=== PATIENT | male | born 1950 | race Caucasian/White ===

== ENCOUNTER 2017-06-26 16:11 | Emergency (ER) | payer MEDICARE, OTHER ==
--- NOTE | 2017-06-26 17:42 | RADIOLOGY REPORT (SQ) ---
EXAM DESCRIPTION: CT HEAD WITHOUT COMPLETED DATE/TIME: 06/26/2017 5:30 pm REASON FOR STUDY: right hand weak COMPARISON: 05/22/2017. TECHNIQUE: Axial images acquired through the brain without intravenous contrast. Images reviewed wi th bone, brain and subdural windows. Images stored on PACS. All CT scanners at this facility use dose modulation, iterative reconstruction, and/or weight based d osing when appropriate to reduce radiation dose to as low as reasonably achievable (ALARA). [facility]: Dose Right [facility]: CareDose [facility]: Dose Right [facility]: Teradose 4D [facility]: [employer] RADIATION DOSE: mGy. LIMITATIONS: None. FINDINGS: VENTRICLES: Stable mild ventriculomegaly. Bilateral ventricular shunt tubes. Stable 2.3 cm mass in the midline, possibly the 3rd ventricle. CEREBRUM: No masses. No hemorrhage. No midline shift. Areas of low density in the white matter mos t likely due to chronic micro-vascular ischemic change. No evidence for acute infarction. CEREBELLUM: No masses. No hemorrhage. No alteration of density. No evidence for acute infarction. EXTRAAXIAL SPACES: Mild age-related involutional change. No fluid collections. No masses. ORBITS AND GLOBE: No intra- or extraconal masses. Normal contour of globe without masses. CALVARIUM: No fracture. PARANASAL SINUSES: No fluid or mucosal thickening. SOFT TISSUES: No mass or hematoma. OTHER: No other significant finding. IMPRESSION: 1. 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 2. STABLE MILD VENTRICULOMEGALY WITH BILATERAL VENTRICULAR SHUNT TUBES. 3. MILD CHRONIC CHANGES OF ATROPHY AND MICROVASCULAR ISCHEMIA. NO ACUTE PROCESS. EVIDENCE OF ACUTE STROKE: NO. TECHNICAL DOCUMENTATION: JOB ID: [id number] Quality ID # [id number]: Final reports with documentation of one or more dose reduction techniques (e.g., Au tomated exposure control, adjustment of the mA and/or kV according to patient size, use of iterative reconstruction technique) 2010 [employer]- All Rights Reserved
[2017-06-26 18:06] LABS: ABSOLUTE BASOPHILS # (AUTO) 0.1 10^3/uL (0.0-0.2); ABSOLUTE EOSINOPHILS # (AUTO) 0.2 10^3/uL (0.0-0.6); ABSOLUTE LYMPHOCYTES (AUTO) 1.3 10^3/uL (0.5-4.7); ABSOLUTE MONOCYTES (AUTO) 0.8 10^3/uL (0.1-1.4); ABSOLUTE NEUT (AUTO) 5.9 10^3/uL (1.7-8.2); BASOPHILS % (AUTO) 0.9 % (0-2); EOSINOPHILS % (AUTO) 2.4 % (0-6); HEMATOCRIT 52.8 % (37.9-51.0); HEMOGLOBIN 18.1 g/dL (13.5-17.0); HGB HCT DIFFERENCE 1.5; LYMPHOCYTES % (AUTO) 15.9 % (13-45); MEAN CORPUSCULAR HEMOGLOBIN 30.9 pg (27.0-33.4); MEAN CORPUSCULAR HGB CONC 34.4 g/dL (32.0-36.0); MEAN CORPUSCULAR VOLUME 90 fl (80-97); MONOCYTES % (AUTO) 9.5 % (3-13); RED BLOOD COUNT 5.87 10^6/uL (4.35-5.55); RED CELL DISTRIBUTION WIDTH 13.3 % (11.5-14.0); SEGMENTED NEUTROPHILS % (AUTO) 71.3 % (42-78); WHITE BLOOD COUNT 8.3 10^3/uL (4.0-10.5)
[2017-06-26 18:23] LABS: ALANINE AMINOTRANSFERASE 50 U/L (21-72); ALBUMIN 4.2 g/dL (3.5-5.0); ALKALINE PHOSPHATASE 85 U/L (38-126); ANION GAP 16 (5-19); ASPARTATE AMINO TRANSFERASE 33 U/L (17-59); BILIRUBIN,DIRECT 0.3 mg/dL (0.0-0.4); BILIRUBIN,TOTAL 0.6 mg/dL (0.2-1.3); BLOOD UREA NITROGEN 16 mg/dL (7-20); CALCIUM 9.8 mg/dL (8.4-10.2); CARBON DIOXIDE 22 mmol/L (22-30); CHLORIDE 99 mmol/L (98-107); CREATININE RESULT 1.02 mg/dL (0.52-1.25); GLUCOSE 138 mg/dL (75-110); POTASSIUM 4.7 mmol/L (3.6-5.0); SODIUM 136.8 mmol/L (137-145); TOTAL PROTEIN 7.2 g/dL (6.3-8.2)
[2017-06-26 19:07] LABS: APPEARANCE,URINE CLEAR; BILIRUBIN,URINE NEGATIVE (NEGATIVE); GLUCOSE, URINE >=500 mg/dL (NEGATIVE); KETONES,URINE TRACE mg/dL (NEGATIVE); LEUKOCYTE ESTERASE,URINE NEGATIVE (NEGATIVE); NITRITE,URINE NEGATIVE (NEGATIVE); PROTEIN,URINE 100 mg/dL (NEGATIVE); URINE SPECIFIC GRAVITY 1.026; UROBILINOGEN,URINE NEGATIVE mg/dL (<2.0)
--- NOTE | 2017-06-26 19:09 | ER Document Report ---
ED Neuro Symptoms/Deficit - General Chief Complaint: General Weakness Stated Complaint: WEAKNESS IN RIGHT HAND Time Seen by Provider: 06/26/17 17:29 Notes: Patient had use of his right hand, according to his . He had an episode a month or so ago, around early or mid April, with both his right hand and leg being difficult to control. He was seen here and had a complete workup including CT scan of the brain and was felt to be improving and discharged home. Patient right hand recovered completely as did his right leg. Then, yesterday, the weakness of the right hand returned. Patient was also feeling lightheaded and dizzy. He did not lose his balance or fall, however. He does not have involvement of his leg at this time. says that he seems to be improving somewhat today. Patient has a history of hydrocephalus for which he had shunt placed in his brain in 1978. PMH: Coronary stent, hypertension, NIDDM. Patient's primary care provider is Dr. Rodríguez. TRAVEL OUTSIDE OF THE [place] IN LAST 30 DAYS: No - Related Data Allergies/Adverse Reactions: No Known Allergies Allergy (Verified 06/26/17 16:21) Past Medical History - Social History Smoking Status: Never Smoker Chew tobacco use (# tins/day): No Frequency of alcohol use: None Drug Abuse: None Family History: Reviewed & Not Pertinent Patient has suicidal ideation: No Patient has homicidal ideation: No - Past Medical History Cardiac Medical History: Reports: Hx Coronary Artery Disease, Hx Hypertension Endocrine Medical History: Reports: Hx Diabetes Mellitus Type 1, Hx Diabetes Mellitus Type 2 Past Surgical History: Reports: Hx Cardiac Catheterization, Hx Neurologic Surgery - brain for hydrocephalus. Review of Systems - Review of Systems Notes: REVIEW OF SYSTEMS: CONSTITUTIONAL : Denies fever. EENT: Denies eye, ear, nose or mouth or throat pain or other symptoms. CARDIOVASCULAR: Denies chest pain. RESPIRATORY: Denies cough, chest congestion, or shortness of breath. GASTROINTESTINAL: Denies abdominal pain or nausea, vomiting, or diarrhea. GENITOURINARY: Denies difficulty or painful urinating, urinary frequency, blood in urine. MUSCULOSKELETAL: Denies back or neck pain. Denies joint pain or swelling. SKIN: Denies rash or skin lesions. NEUROLOGICAL: Denies LOC or altered mental status. Denies headache. See HPI. ALL OTHER SYSTEMS REVIEWED AND NEGATIVE. Physical Exam - Vital signs Vitals: Temp Pulse Resp BP Pulse Ox 98.3 F 126 H 18 139/88 H 95 06/26/17 16:24 06/26/17 16:24 06/26/17 16:24 06/26/17 16:24 06/26/17 16:24 Interpretation: Tachycardic - Tachycardia in triage not found by me on examining patient, heart rate at bedside 100. - Notes Notes: PHYSICAL EXAMINATION: GENERAL: Well-appearing, in no acute distress. Patient can stand without assistance and walk around the examining room without difficulty and without losing his balance. HEAD: Atraumatic, normocephalic. EYES: Pupils equal round and reactive to light, extraocular movements intact. ENT: oropharynx clear without exudates. Moist mucous membranes. NECK: Normal range of motion, supple. LUNGS: Breath sounds clear and equal bilaterally. HEART: Regular rate and rhythm without murmurs. ABDOMEN: Soft, nontender. No guarding or rebound. BACK: No tenderness throughout entire back. EXTREMITIES: Normal range of motion without pain. NEUROLOGICAL: Normal speech, normal gait. Normal sensory, motor, and reflex exams. Patient has equal loss prevention leader with both hands. No current deficits. Awake, alert, and oriented x3. Cranial nerves normal. PSYCH: Normal mood, normal affect. SKIN: Warm, dry, no rashes. Course - Re-evaluation Re-evalutation: 06/26/17 19:53 06/26/17 19:51 Patient remained stable throughout his stay in the department. He takes a baby aspirin every morning around 10 AM and I advised him to take 1 tonight at bedtime and to take baby aspirin twice a day until he sees his primary care provider and they discuss his blood thinning, given the elevated hemoglobin that he has. - Vital Signs Vital signs: Temp Pulse Resp BP Pulse Ox 98.2 F 126 H 13 129/77 H 94 06/26/17 18:01 06/26/17 16:24 06/26/17 19:14 06/26/17 19:14 06/26/17 19:14 06/26/17 19:53 - Laboratory Result Diagrams: 06/26/17 17:51 06/26/17 17:51 Laboratory results interpreted by me: 06/26/17 06/26/17 06/26/17 17:51 17:51 18:50 RBC 5.87 H Hgb 18.1 H Hct 52.8 H Sodium 136.8 L Glucose 138 H Urine Protein 100 H Urine Glucose (UA) >=500 H Urine Ketones TRACE H Urine Ascorbic Acid 40 H 06/26/17 19:52 Incidentally noted ANIL globin of 18.1. Patient and not aware of this in the patient's history. I have copied all the labs for them to take with them and contact her primary care provider tomorrow. - Diagnostic Test Radiology reviewed: Image reviewed, Reports reviewed - CT scan of the brain shows a stable mass in the ventricle that is about the same size on previous exam. No acute findings on the CT scan. No evidence of stroke. - EKG Interpretation by Me EKG shows normal: Sinus rhythm Rate: Normal Rhythm: NSR - At 102. Discharge - Discharge Clinical Impression: Weakness of right hand, Polycythemia Condition: Stable Disposition: HOME, SELF-CARE Additional Instructions: Weakness Right Hand: We did not find a definite cause for your weakness. This may require further medical tests. Weakness can be caused by infection, physical exhaustion , rapid weight loss, dehydration, or medicine side effects. Diseases of the muscles, heart, nerves, and blood vessels can make you weak. Sometimes the problem is simply depression or lack of exercise. You should get plenty of rest. Unless the doctor tells you otherwise, it's usually best to add short periods of regular mild exercise. Eat a nutritious diet with multiple small, low-sugar meals. If symptoms continue, additional medical evaluation will be necessary. Be sure to follow up as instructed. If you become very dizzy, nauseated, or feel like you're going to faint, lie down right away. Wait until the symptoms have passed before you get up again. Stand up slowly. Call the doctor or return if you develop chest pain, abdominal pain, severe headache, irregular heartbeat or very fast pulse, confusion, vision problems, fever, muscular pain, or any other new symptom. Your CT scan findings are of a chronic, previously seen mass that has not enlarged. There is no evidence of any increased intracranial pressure. Your hemoglobin was 18.1. Polycythemia We have found a higher than normal count of red blood cells. When the blood is thick with extra red cells, we call it "polycythemia." Blood cells are created in your bone marrow. In polycythemia, the marrow is over-active, making extra blood cells. Polycythemia can be a reaction to low oxygen in your blood, as occurs with chronic bronchitis or sleep apnea. Sometimes no clear cause is found. Polycythemia can be dangerous, because the thickened blood clots more easily. There's a higher risk of stroke, heart attack, and blood clots. The best treatment for polycythemia is to treat the underlying cause. For example, treating lung disease to increase the blood oxygen may lower the count of red blood cells. If it's not possible to eliminate the cause of polycythemia , you may be treated by removing some of your blood from time to time. This lowers the count of red cells and makes the blood thinner. Call your doctor or return if you have chest pain or new shortness of breath, or symptoms of a stroke such as memory problems, severe headache, vomiting, severe dizziness, weakness or numbness, double vision, a seizure, or problems with balance or coordination. Increase your baby aspirin to twice a day instead of the current once a day. FOLLOW-UP CARE: If you have been referred to a physician for follow-up care, call the physician s office for an appointment as you were instructed or within the next two days. If you experience worsening or a significant change in your symptoms, notify the physician immediately or return to the Emergency Department at any time for re-evaluation. Contact Dr. Rodríguez's office tomorrow morning to inform them of your visit here in the emergency department and the weakness that you are having in your right hand. Also tell them about the finding of your increased hemoglobin level of 18.1. Finally, find out if they want to to be on any additional blood thinning medications.
[2017-06-26 19:30] VITALS: BP 129/77
--- NOTE | 2017-06-26 22:23 | EKG REPORT ---
SEVERITY:- OTHERWISE NORMAL ECG - SINUS TACHYCARDIA BORDERLINE LEFT AXIS DEVIATION : Confirmed by: Jayden Fox 26-Jun-2017 22:22:36
== END 2017-06-26 19:31 | disposition home or self-care (01) ==
LOC: ER 16:11
DX: R53.1 Weakness (principal); D75.1 Secondary polycythemia; Z79.82 Long term (current) use of aspirin; I25.10 Atherosclerotic heart disease of native coronary artery without angina pectoris; I10 Essential (primary) hypertension; E11.9 Type 2 diabetes mellitus without complications
CPT/HCPCS: 36415; 70450; 80053; 81001; 84484; 85025; 93005; 93010; 99285

== ENCOUNTER 2017-12-29 13:23 | Inpatient (IN) | payer MEDICARE, OTHER ==
[2017-12-29 14:06] LABS: ABSOLUTE EOSINOPHILS # (AUTO) 0.1 10^3/uL (0.0-0.6); ABSOLUTE LYMPHOCYTES (AUTO) 1.5 10^3/uL (0.5-4.7); ABSOLUTE MONOCYTES (AUTO) 0.6 10^3/uL (0.1-1.4); BASOPHILS % (AUTO) 0.5 % (0-2); HEMOGLOBIN 17.9 g/dL (13.5-17.0); LYMPHOCYTES % (AUTO) 14.8 % (13-45); MEAN CORPUSCULAR HEMOGLOBIN 30.7 pg (27.0-33.4); MEAN CORPUSCULAR HGB CONC 34.5 g/dL (32.0-36.0); MEAN CORPUSCULAR VOLUME 89 fl (80-97); MONOCYTES % (AUTO) 6.1 % (3-13); PLATELET COUNT 229 10^3/uL (150-450); RED BLOOD COUNT 5.83 10^6/uL (4.35-5.55); RED CELL DISTRIBUTION WIDTH 13.5 % (11.5-14.0); SEGMENTED NEUTROPHILS % (AUTO) 77.6 % (42-78); TOTAL CELLS COUNTED % (AUTO) 100 %; WHITE BLOOD COUNT 10.3 10^3/uL (4.0-10.5)
[2017-12-29 14:08] LABS: INTERNATIONAL RATION (INR) 0.94; PROTHROMBIN TIME 13.1 SEC (11.4-15.4)
--- NOTE | 2017-12-29 14:08 | RADIOLOGY REPORT (SQ) ---
EXAM DESCRIPTION: CT HEAD WITHOUT COMPLETED DATE/TIME: 12/29/2017 1:33 pm REASON FOR STUDY: stroke-like symptoms COMPARISON: CT brain 06/26/2017, 05/22/2017 TECHNIQUE: Axial images acquired through the brain without intravenous contrast. Images reviewed wi th bone, brain and subdural windows. Additional sagittal and coronal reconstructions were generated. Images stored on PACS. All CT scanners at this facility use dose modulation, iterative reconstruction, and/or weight based d osing when appropriate to reduce radiation dose to as low as reasonably achievable (ALARA). [facility]: Dose Right [facility]: CareDose [facility]: Dose Right [facility]: Teradose 4D [facility]: [employer] RADIATION DOSE: 53 mGy. LIMITATIONS: None. FINDINGS: VENTRICLES: No hydrocephalus. Hyperdense nodule is present in the foramen of Monro/anteri or 3rd ventricle likely a colloid cyst. This measures 2.6 cm in diameter, unchanged. There are bilateral intraventricular drainage catheters entering the right and left lateral ventricle s through the occipital horns, unchanged. CEREBRUM: Small to moderate-sized acute nonhemorrhagic infarct in the left posterior temporal cortex and subcortical white matter axial images 19-23, with low attenuation in the brain parenchyma and eff acement of the sulci. This likely represents early subacute 1 day to 1-month-old ischemic change. F indings discussed with Dr. Bang in the emergency room. An old left parietal subcortical white matter infarct is present unchanged from prior studies. CEREBELLUM: No masses. No hemorrhage. No acute infarct. Stable punctate calcification left harry, u nchanged. No evidence for acute infarction. EXTRAAXIAL SPACES: No fluid collections. No masses. ORBITS AND GLOBE: No intra- or extraconal masses. Globes post cataract surgery. CALVARIUM: No fracture. PARANASAL SINUSES: No fluid or mucosal thickening. SOFT TISSUES: No mass or hematoma. OTHER: No other significant finding. IMPRESSION: Acute or early subacute nonhemorrhagic infarct left posterior temporal cortex and subcor tical white matter. 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 No hydrocephalus. Intraven tricular drainage catheters are unchanged from prior studies. EVIDENCE OF ACUTE STROKE: Yes COMMENT: Pertinent positive or negative findings of the imaging study reported as a CRITICAL EXAM t o ER Dr Bang [id number] hours on 12/29/2017. Category of Critical Exam: CT code stroke Quality ID # 436: Final reports with documentation of one or more dose reduction techniques (e.g., Au tomated exposure control, adjustment of the mA and/or kV according to patient size, use of iterative reconstruction technique) TECHNICAL DOCUMENTATION: JOB ID: [id number] [employer]- All Rights Reserved Reading location - IP/workstation name: [email or web address]
--- NOTE | 2017-12-29 14:11 | RADIOLOGY REPORT (SQ) ---
EXAM DESCRIPTION: CHEST SINGLE VIEW COMPLETED DATE/TIME: 12/29/2017 1:32 pm REASON FOR STUDY: stroke-like symptoms COMPARISON: CT chest 05/22/2017 EXAM PARAMETERS: NUMBER OF VIEWS: One view. TECHNIQUE: Single frontal radiographic view of the chest acquired. RADIATION DOSE: NA LIMITATIONS: None. FINDINGS: LUNGS AND PLEURA: No opacities, masses or pneumothorax. No pleural effusion. MEDIASTINUM AND HILAR STRUCTURES: No masses. Contour normal. HEART AND VASCULAR STRUCTURES: Mild cardiomegaly BONES: No acute findings. HARDWARE: Faintly radiopaque ventriculoperitoneal shunt tubing is present over the right chest OTHER: No other significant finding. IMPRESSION: NO ACUTE RADIOGRAPHIC FINDING IN THE CHEST. TECHNICAL DOCUMENTATION: JOB ID: [id number] [employer]- All Rights Reserved Reading location - IP/workstation name: [email or web address]
--- NOTE | 2017-12-29 14:15 | ER Document Report ---
ED Neuro Symptoms/Deficit - General Stated Complaint: WEAKNESS Time Seen by Provider: 12/29/17 14:15 Notes: Patient brought in by EMS for possible stroke. Reportedly last known normal time was at 10:30 AM. However, when the patient's arrived, further history is that the patient got up at 3:30 AM and fell and tried to get up a couple more times and fell each of those times, as well. He was able to eventually call back to bed. noted he had some slurred speech then as well and had some difficulty moving his right hand. Then, again about 6:30 AM, patient fell another time. noted the floor was wet and thinks he may have urinated on the floor. He continued to have the slurred speech and right-sided weakness. Called EMS this morning to bring the patient here. Patient probably had a stroke with similar symptoms about a year or so ago, but was seen by an software licensing specialist at [facility], but never admitted to the hospital. He did not suffer any long-term sequelae. He does have a shunt from his brain for an unknown entity. He had this shown for the first time at 17 years of age and the second time it was revised was about 40 years ago. Patient is very difficult to understand anything he is saying at this time. He does try to follow commands and answer but has severe expressive aphasia now. TRAVEL OUTSIDE OF THE [place] IN LAST 30 DAYS: No - Related Data Allergies/Adverse Reactions: No Known Allergies Allergy (Verified 06/26/17 16:21) Past Medical History - Social History Smoking Status: Unknown if Ever Smoked Family History: Reviewed & Not Pertinent - Past Medical History Cardiac Medical History: Reports: Hx Coronary Artery Disease, Hx Hypercholesterolemia, Hx Hypertension Neurological Medical History: Reports: Hx Cerebrovascular Accident - Approximately 1 year ago, Other - Ventricular shunts for hydrocephalus. Endocrine Medical History: Reports: Hx Diabetes Mellitus Type 1, Hx Diabetes Mellitus Type 2 Past Surgical History: Reports: Hx Cardiac Catheterization, Hx Neurologic Surgery - shunts of brain for hydrocephalus. Review of Systems - Review of Systems -: Yes ROS unobtainable due to patient's medical condition - Patient cannot speak and is a very poor historian Physical Exam - Vital signs Interpretation: Hypertensive. No: Febrile - Notes Notes: PHYSICAL EXAMINATION: GENERAL: Well-appearing, awake, tries to follow commands, cannot be understood what the patient is saying. HEAD: Atraumatic, normocephalic. I do not appreciate any definite droop of either side of his face. EYES: Pupils equal round and reactive to light, extraocular movements intact. ENT: oropharynx clear without exudates. Moist mucous membranes. NECK: Normal range of motion, supple. LUNGS: Breath sounds clear and equal bilaterally. HEART: Regular rate and rhythm without murmurs. ABDOMEN: Soft, nontender. No guarding or rebound. No masses. BACK: No tenderness throughout entire back. EXTREMITIES: Normal range of motion without pain. NEUROLOGICAL: Patient has an expressive aphasia and is unable to converse understandably. Unable to stand or walk. 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 PSYCH: Unable to assess. SKIN: Warm, dry, no rashes. Course - Re-evaluation Re-evalutation: 12/29/17 14:32 From patient's initial symptoms at 3:30 AM until arrival here in the emergency department around 1 PM, he is far beyond the window for getting TPA for his stroke. - Laboratory Result Diagrams: 12/29/17 13:45 12/29/17 13:45 Laboratory results interpreted by ia: 12/29/17 13:45 RBC 5.83 H Hgb 17.9 H Hct 52.0 H - Diagnostic Test Radiology reviewed: Image reviewed, Reports reviewed - CT scan shows a subacute nonhemorrhagic infarct of the left posterior temporal cortex and subcortical white matter. No hemorrhage in the cerebellum or cerebrum. Previously known shunt present. Radiology results interpreted by ia: 12/29/17 14:31 Chest x-ray shows some mild cardiomegaly but otherwise is unremarkable and normal. - EKG Interpretation by [facility] EKG shows normal: Sinus rhythm Rate: Normal, Tachycardia - 105 Rhythm: NSR Critical Care Note - Critical Care Note Total time excluding time spent on procedures (mins): 60 Discharge - Discharge Clinical Impression: Stroke Condition: Serious Disposition: ADMITTED INPATIENT Admitting Provider: Hospitalist Unit Admitted: [facility]
[2017-12-29 14:16] LABS: PARTIAL THROMBOPLASTIN TIME 26.8 SEC (23.5-35.8)
[2017-12-29] MEDS ORDERED: METOCLOPRAMIDE HCL INJ/PF 10 MG/2 ML SDV ONE (14:23)
[2017-12-29 14:29] LABS: ALANINE AMINOTRANSFERASE 56 U/L (21-72); ALBUMIN 4.4 g/dL (3.5-5.0); ALKALINE PHOSPHATASE 80 U/L (38-126); ANION GAP 16 (5-19); ASPARTATE AMINO TRANSFERASE 38 U/L (17-59); BILIRUBIN,DIRECT 0.5 mg/dL (0.0-0.4); BILIRUBIN,TOTAL 0.7 mg/dL (0.2-1.3); BLOOD UREA NITROGEN 14 mg/dL (7-20); CALCIUM 9.7 mg/dL (8.4-10.2); CARBON DIOXIDE 25 mmol/L (22-30); CHLORIDE 97 mmol/L (98-107); CREATINE KINASE 95 U/L (55-170); GLUCOSE 229 mg/dL (75-110); POTASSIUM 4.7 mmol/L (3.6-5.0); SODIUM 138.1 mmol/L (137-145); TOTAL PROTEIN 7.5 g/dL (6.3-8.2)
[2017-12-29 14:39] LABS: CREATINE KINASE MB 3.25 ng/mL (<4.55)
[2017-12-29 14:42] LABS: TROPONIN I < 0.012 ng/mL
[2017-12-29] MEDS ORDERED: METOCLOPRAMIDE HCL INJ/PF 10 MG/2 ML SDV IV ONE (14:44)
[2017-12-29] MEDS ORDERED: ACETAMINOPHEN 325 MG TABLET PO PRN (14:54)
[2017-12-29] MEDS ORDERED: ONDANSETRON 4 MG TAB.RAPDIS PO ONE (15:21)
[2017-12-29] MEDS ORDERED: CLOPIDOGREL BISULFATE 75 MG TABLET PO ONE ×2 (15:49→21:15)
--- NOTE | 2017-12-29 15:51 | EKG REPORT ---
SEVERITY:- BORDERLINE ECG - SINUS TACHYCARDIA BORDERLINE LEFT AXIS DEVIATION MINIMAL ST DEPRESSION, LATERAL LEADS : Confirmed by: Jose Person MD 29-Dec-2017 15:50:22
[2017-12-29] MEDS ORDERED: DEXTROSE 50%-WATER 25 GM/50 ML DISP.SYRIN IV PRN ×2 (15:55)
[2017-12-29] MEDS ORDERED: GLUCAGON,HUMAN RECOMB 1 MG INJ IM PRN (15:55)
[2017-12-29] MEDS ORDERED: DEXTROSE 40% GEL 15 GM TUBE PO PRN ×2 (15:55)
[2017-12-29 16:11] LABS: APPEARANCE,URINE CLEAR; BILIRUBIN,URINE NEGATIVE (NEGATIVE); COLOR,URINE YELLOW; GLUCOSE, URINE >=500 mg/dL (NEGATIVE); KETONES,URINE TRACE mg/dL (NEGATIVE); LEUKOCYTE ESTERASE,URINE NEGATIVE (NEGATIVE); NITRITE,URINE NEGATIVE (NEGATIVE); PROTEIN,URINE >=500 mg/dL (NEGATIVE); URINE SPECIFIC GRAVITY 1.022; UROBILINOGEN,URINE NEGATIVE mg/dL (<2.0)
[2017-12-29 16:25] LABS: URINE AMPHETAMINES SCREEN NEGATIVE; URINE BARBITURATES SCREEN NEGATIVE; URINE BENZODIAZEPINES SCREEN NEGATIVE; URINE COCAINE SCREEN NEGATIVE; URINE MARIJUANA (THC) SCREEN NEGATIVE; URINE METHADONE SCREEN NEGATIVE; URINE PHENCYCLIDINE SCREEN NEGATIVE
--- NOTE | 2017-12-29 17:32 | RADIOLOGY REPORT (SQ) ---
EXAM DESCRIPTION: CTA NECK COMPLETED DATE/TIME: 12/29/2017 5:09 pm REASON FOR STUDY: cva COMPARISON: None. TECHNIQUE: Axial dynamic scanning technique with dynamic contrast enhancement through the extra-aircraft sales representative nial carotid and vertebral arteries. Multiplanar reconstruction. 3-D MIPS and Volume-rendered imag es acquired at the workstation and saved to PACS. Images are reviewed in soft tissue, bone, lung w indows. All CT scanners at this facility use dose modulation, iterative reconstruction, and/or weight based d osing when appropriate to reduce radiation dose to as low as reasonably achievable (ALARA). [facility]: Dose Right [facility]: CareDose [facility]: Dose Right [facility]: Teradose 4D [facility]: [employer] CONTRAST TYPE AND DOSE: contrast/concentration: Isovue 370.00 mg/ml; Total Contrast Delivered: 70.0 ml; Total Saline Delivered: 75.0 ml RENAL FUNCTION: BUN 14; creatinine 0.91 LIMITATIONS: None. FINDINGS: AORTIC ARCH: Normal three-vessel origin. Bilateral subclavian arteries are patent. No d issection. RIGHT CAROTIDS: Calcified and noncalcified plaque at the level of the carotid bulb and the origins of the internal and external carotid arteries. No significant stenosis. No dissection. RIGHT VERTEBRAL: Patent. No dissection. Less than 25% stenosis of the intracranial segment due to c alcified and noncalcified plaque. LEFT CAROTIDS: 25 to 50% stenosis of the common carotid artery at the level of the bulb due to predom inantly calcified plaque. Approximately 50% stenosis of the origin of the internal carotid artery on the basis of calcified and noncalcified plaque. The external carotid artery remains patent. LEFT VERTEBRAL: The intracranial/terminal left vertebral artery is occluded. OTHER: Incidental note is again made of a ventricular shunt. OTHER: 3-D reconstructions confirm findings. 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 Up to 50% stenosis of the left interna l carotid artery and left common carotid artery. No significant stenosis of the right carotid or mckenzie tebral arteries. COMMENT: Quality ID #[id number]: Measurements of distal internal carotid diameter were used as the denomina tor for stenosis measurement. TECHNICAL DOCUMENTATION: JOB ID: [id number] Quality ID # 436: Final reports with documentation of one or more dose reduction techniques (e.g., Au tomated exposure control, adjustment of the mA and/or kV according to patient size, use of iterative reconstruction technique) 2010 [employer]- All Rights Reserved Reading location - IP/workstation name: [email or web address]
--- NOTE | 2017-12-29 17:38 | RADIOLOGY REPORT (SQ) ---
EXAM DESCRIPTION: CTA HEAD COMPLETED DATE/TIME: 12/29/2017 5:09 pm REASON FOR STUDY: cva COMPARISON: Noncontrast head CT 12/29/2017 TECHNIQUE: Post IV contrast scanning, thin section axial imaging through the brain to evaluate the a rterial structures. Source and MIP images are saved and reviewed on PACS. Advanced 3D imaging as volume-rendering, MIPs, SSD performed? yes All CT scanners at this facility use dose modulation, iterative reconstruction, and/or weight based d osing when appropriate to reduce radiation dose to as low as reasonably achievable (ALARA). [facility]: Dose Right [facility]: CareDose [facility]: Dose Right [facility]: Teradose 4D [facility]: [employer] CONTRAST TYPE AND DOSE: Examination performed in conjunction with CTA neck. RENAL FUNCTION: BUN 14; creatinine 0.91 LIMITATIONS: None. FINDINGS: [place]: The anterior, middle, posterior cerebral arteries are all patent. No ev idence of aneurysm or focal stenosis. Incidental note is made of calcific plaque within the cavernou s segments of the internal carotid arteries. POSTERIOR CIRCULATION: The left distal vertebral artery is occluded. The right vertebral artery and basilar artery remain patent. The superior cerebellar and posterior cerebral arteries appear patent. BRAIN: No gross enhancing lesions as visualized. The superior cerebral hemispheres are not included in the field of view. BONES: Intact as visualized. SINUSES: No fluid or mucosal thickening. OTHER: Incidental note is made of a left ventricular shunt. 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 Normal opacification of the rampart of Daniels. TECHNICAL DOCUMENTATION: JOB ID: [id number] Quality ID # [id number]: Final reports with documentation of one or more dose reduction techniques (e.g., Au tomated exposure control, adjustment of the mA and/or kV according to patient size, use of iterative reconstruction technique) 2010 [employer]- All Rights Reserved Reading location - IP/workstation name: [email or web address]
--- NOTE | 2017-12-29 18:58 | PDOC H&P ---
History of Present Illness Admission Date/PCP: 12/29/17 15:20 KVNG SINGLETON MD Patient complains of: Weakness and falls slurred speech History of Present Illness: KVNG CHE is a 67 year old man with difficult to control diabetes, obesity, hypertension who started falling last night, his wanted to take him to the ER but he did not want to go, this morning he was having slurred speech and she called 911. The patient also had right arm weakness. In the ER he had signs and symptoms consistent with stroke, onset time unknown and he was not a TPA candidate. Scan of the head showed acute or subacute nonhemorrhagic stroke of the left posterior temporal cortex, along with a possible colloid cyst which has been seen in the past and also intraventricular drainage catheters unchanged from prior studies. Patient has been able to protect his airway. He has some expressive aphasia. He is being admitted to the hospitalist service, [facility], for continued management. Past Medical History Cardiac Medical History: Reports: Coronary Artery Disease, Hyperlipidema, Hypertension, Peripheral Vascular Disease Neurological Medical History: Reports: Other - Ventricular shunts for hydrocephalus. Denies: Hemorrhagic CVA, Ischemic CVA, Seizures Endocrine Medical History: Reports: Diabetes Mellitus Type 1, Diabetes Mellitus Type 2 Renal/ Medical History: Denies: End Stage Renal Disease Malignancy Medical History: Denies: None GI Medical History: Denies: Cirrhosis Musculoskeltal Medical History: Denies: Fibromyalgia, Gout Skin Medical History: Denies: Eczema, Psoriasis Psychiatric Medical History: Reports: Depression, General Anxiety Disorder Denies: Alcohol Dependency, Dementia, Substance Abuse Traumatic Medical History: Denies: None Hematology: Denies: Anemia Infectious Medical History: Denies: None Past Surgical History Past Surgical History: Reports: Cardiac Catheterization, Coronary Stent, Orthopedic Surgery - bilateral rotator cuff repairs Social History Information Source: Relative 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 Lives with: Spouse/Significant other Smoking Status: Former Smoker Last Time Smoked: 30 years Frequency of Alcohol Use: None Hx Recreational Drug Use: No Hx Prescription Drug Abuse: No Past Social History Note: Patient is here with his . She tells me that he has 1 daughter from a previous marriage who lives in [place] and they are not really in touch with her. She does not know that the patient is here. He tells me that he is very sedentary at home post shelter. - Advance Directive Resuscitation Status: Do Not Resuscitate Surrogate healthcare decision maker:: The patient's is named Sherron her phone number is [phone] Family History Parental Family History Reviewed: Yes - Mother with colon cancer Children Family History Reviewed: Yes - 1 adult daughter who is healthy as far as his knows Sibling(s) Family History Reviewed.: Unknown - Patient has 1 sister who had coronary artery disease Medication/Allergy Home Medications: Armodafinil [Nuvigil] 150 mg PO DAILY 12/29/17 Aspirin [Aspirin 325 mg Tablet] 325 mg PO DAILY 12/29/17 Buspirone HCl [Buspar 10 mg Tablet] 10 mg PO DAILY@1000,1400,1800 12/29/17 Dapagliflozin Propanediol [Farxiga] 5 mg PO DAILY 12/29/17 Escitalopram Oxalate [Lexapro] 20 mg PO DAILY 12/29/17 Fesoterodine Fumarate [Toviaz] 4 mg PO DAILY 12/29/17 Gabapentin [Neurontin 100 mg Capsule] 200 mg PO DAILY@1000,1400,1800 12/29/17 Hydralazine HCl [Apresoline 25 mg Tablet] 25 mg PO DAILY@1000,1400,1800 Hydrocodone Bit/Acetaminophen [Hydrocodon-Acetaminoph 2.5-325] 1 tab PO Q12HP PRN 12/29/17 Insulin Aspart [Novolog Flexpen] 20 unit SQ .TIDAC 12/29/17 Insulin Detemir [Levemir Flextouch] 55 unit SQ QHS 12/29/17 Lorazepam [Ativan 0.5 mg Tablet] 0.25 mg PO Q8HP PRN 12/29/17 Methocarbamol [Robaxin 750 mg Tablet] 750 mg PO Q8HP PRN 12/29/17 Mirabegron [Myrbetriq] 50 mg PO DAILY 12/29/17 Montelukast Sodium [Singulair 10 mg Tablet] 10 mg PO DAILY 12/29/17 [place]-3 Acid Ethyl Esters [Lovaza 1 gm Capsule] 2 gm PO DAILY@1400 12/29/17 [place]-3 Acid Ethyl Esters [Lovaza 1 gm Capsule] 2 gm PO QHS 12/29/17 Omeprazole 40 mg PO QPM 12/29/17 Tamsulosin HCl [Flomax 0.4 mg Cap.sr] 0.4 mg PO DAILY 12/29/17 Valsartan [Diovan] 320 mg PO DAILY@1400 12/29/17 Zolpidem Tartrate [Ambien] 10 mg PO HSP PRN 12/29/17 Allergies/Adverse Reactions: No Known Allergies Allergy (Verified 06/26/17 16:21) Review of Systems ROS unobtainable: Due to mental status, Other - Obtained from as patient is unable to appropriately express himself. Constitutional: ABSENT: chills, fever(s) Eyes: ABSENT: visual disturbances Ears: ABSENT: hearing changes Cardiovascular: ABSENT: chest pain, dyspnea on exertion Respiratory: ABSENT: cough Gastrointestinal: ABSENT: nausea, vomiting Neurological: PRESENT: abnormal speech, focal weakness Psychiatric: PRESENT: anxiety, depression Physical Exam Vital Signs: Temp Pulse Resp BP Pulse Ox 99.3 F 112 H 22 H 170/97 H 96 12/29/17 17:59 12/29/17 18:17 12/29/17 18:17 12/29/17 18:17 12/29/17 18:17 Intake & Output 12/28/17 12/29/17 12/30/17 06:59 06:59 06:59 Output Total 700 Balance -700 General appearance: PRESENT: mild distress, morbidly obese Head exam: PRESENT: atraumatic, normocephalic Eye exam: PRESENT: EOMI. ABSENT: conjunctival injection, scleral icterus Ear exam: PRESENT: normal external ear exam Mouth exam: PRESENT: dry mucosa, tongue midline - Patient could not protrude his tongue fully but it appears to be midline Neck exam: ABSENT: lymphadenopathy, tracheal deviation Respiratory exam: PRESENT: clear to auscultation олег, unlabored. ABSENT: rales , rhonchi, wheezes Cardiovascular exam: PRESENT: tachycardia. ABSENT: systolic murmur Pulses: PRESENT: normal radial pulses GI/Abdominal exam: PRESENT: normal bowel sounds, soft. ABSENT: distended, guarding, tenderness Gentrourinary exam: ABSENT: scrotal swelling Extremities exam: ABSENT: pedal edema Musculoskeletal exam: PRESENT: normal inspection Neurological exam: PRESENT: awake, other - Patient has expressive aphasia. He is intermittently able to follow commands. He is answering questions with a single yes or no but not always able to answer question. He is able to move his right leg but not against gravity. He cannot move his right arm. He can move his left upper and lower extremities without difficulty. 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 Normal opacification of the [place]. 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 Up to 50% stenosis of the left internal carotid artery and left common carotid artery. No significant stenosis of the right carotid or vertebral arteries. Chest X-Ray 12/29/17 13:25 IMPRESSION: NO ACUTE RADIOGRAPHIC FINDING IN THE CHEST. Head CT 12/29/17 13:25 IMPRESSION: Acute or early subacute nonhemorrhagic infarct left posterior temporal cortex and subcortical white matter. 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 No hydrocephalus. Intraventricular drainage catheters are unchanged from prior studies. EVIDENCE OF ACUTE STROKE: Yes Assessment & Plan - Diagnosis (1) Ischemic stroke Is this a current diagnosis for this admission?: Yes Plan: Left posterior temporal cortex stroke, acute versus subacute, nonhemorrhagic. Patient's states that because of his ventricular shunts he cannot have an MRI and so I have ordered a CTA of the head and neck to evaluate the [place], carotid and vertebral. Echocardiogram has been ordered for when patient is more stable. Cardiac enzymes are ordered, first set negative. EKG not concerning for acute coronary syndrome. Patient is able to swallow water without choking or coughing but he does have some drooling from the right side. I have allowed supervised small amounts of ice chips for now. PT and OT are ordered. Will allow permissive hypertension. He is in the 170s and 180s systolic blood pressure and vitals parameters for calling doctor have been given to nursing. Takes a full dose aspirin daily and does not know why he is on a full dose that he does have coronary disease and peripheral vascular disease, perhaps that is why. I started him on Plavix 75 mg daily and transition him to a baby aspirin to reduce bleeding risks. I have ordered DVT prophylaxis to start tomorrow morning with heparin 5000 units subcu every 8 hours. MEND exams are ordered. Lipid panel and hemoglobin A1c ordered. (2) Poorly controlled type 2 diabetes mellitus Is this a current diagnosis for this admission?: Yes Plan: Patient is on multiple medications for diabetes. I have ordered lispro sliding scale for now and we can add glargine if needed. Patient is essentially n.p.o. secondary to stroke symptoms. Will need good education for improved diabetic control. Is clearly a stroke risk factor for this patient. (3) Hypertension Is this a current diagnosis for this admission?: Yes Plan: After permissive hypertension. We will work on good blood pressure control prior to discharge. (4) Coronary artery disease Is this a current diagnosis for this admission?: Yes Plan: Per his he has at least one cardiac stent. I transitioned him to a daily baby aspirin from a full dose aspirin as we have added Plavix. Will work on good blood pressure control. EKG in the ER not concerning for acute coronary syndrome. Cardiac enzymes will be trended, first set normal. (5) Depression with anxiety Is this a current diagnosis for this admission?: Yes Plan: Patient is on BuSpar, Lexapro, as needed Ativan. I started his Lexapro which hopefully he can get down safely with a sip of water. (6) Chronic pain Is this a current diagnosis for this admission?: Yes Plan: She is on as needed Vicodin and I will hold this for now given stroke status. (7) Morbid obesity Is this a current diagnosis for this admission?: Yes Plan: If patient recovers sufficient function hopefully we can work with him on a good weight loss and exercise plan to help prevent further strokes in the future. - Time Time Spent: Greater than 70 Minutes Medications reviewed and adjusted accordingly: Yes - Inpatient Certification Based on my medical assessment, after consideration of the patient's comorbidities, presenting symptoms, or acuity I expect that the services needed warrant INPATIENT care.: Yes I certify that my determination is in accordance with my understanding of Medicare's requirements for reasonable and necessary INPATIENT services [42 CFR 412.3e].: Yes Medical Necessity: Need for Neurological Checks
[2017-12-29] MEDS: NORMAL SALINE 1000 ML 1,000 ML IV PRN (20:18)
[2017-12-29 20:44] LABS: APPEARANCE,URINE CLEAR; BILIRUBIN,URINE NEGATIVE (NEGATIVE); COLOR,URINE YELLOW; GLUCOSE, URINE >=500 mg/dL (NEGATIVE); KETONES,URINE 20 mg/dL (NEGATIVE); LEUKOCYTE ESTERASE,URINE NEGATIVE (NEGATIVE); NITRITE,URINE NEGATIVE (NEGATIVE); PROTEIN,URINE >=500 mg/dL (NEGATIVE); URINE SPECIFIC GRAVITY 1.038; UROBILINOGEN,URINE NEGATIVE mg/dL (<2.0)
[2017-12-29 20:45] LABS: CREATINE KINASE MB 2.8 ng/mL (<4.55)
[2017-12-29 20:51] LABS: TROPONIN I 0.348 ng/mL
[2017-12-29 21:28] LABS: ARTERIAL BLOOD BASE EXCESS -1.2 mmol/L; ARTERIAL BLOOD FIO2 28%; ARTERIAL BLOOD HCO3 21.1 mmol/L (20-26); ARTERIAL BLOOD O2 SATURATION 96.6 % (94-98); ARTERIAL BLOOD PH 7.46 (7.35-7.45); ARTERIAL BLOOD PO2 80.4 mmHg (80-100)
[2017-12-29] MEDS: ATORVASTATIN CALCIUM 20 MG TABLET PO SCH (21:42)
[2017-12-29] MEDS ORDERED: ATORVASTATIN CALCIUM 20 MG TABLET PO SCH (22:00)
[2017-12-29] MEDS: INSULIN LISPRO 100 UNIT/ML 3 ML VIAL SUBCUT PRN (23:00)
[2017-12-30 02:03] LABS: HEMATOCRIT 51.4 % (37.9-51.0); HEMOGLOBIN 17.8 g/dL (13.5-17.0); MEAN CORPUSCULAR HEMOGLOBIN 30.9 pg (27.0-33.4); MEAN CORPUSCULAR HGB CONC 34.6 g/dL (32.0-36.0); MEAN CORPUSCULAR VOLUME 89 fl (80-97); PLATELET COUNT 249 10^3/uL (150-450); RED BLOOD COUNT 5.76 10^6/uL (4.35-5.55); RED CELL DISTRIBUTION WIDTH 13.2 % (11.5-14.0); WHITE BLOOD COUNT 15.5 10^3/uL (4.0-10.5)
[2017-12-30 02:45] LABS: ANION GAP 19 (5-19); BLOOD UREA NITROGEN 14 mg/dL (7-20); CALCIUM 9.7 mg/dL (8.4-10.2); CARBON DIOXIDE 18 mmol/L (22-30); CHLORIDE 99 mmol/L (98-107); CHOLESTEROL 271.95 mg/dL (0-200); GLUCOSE 229 mg/dL (75-110); POTASSIUM 4.3 mmol/L (3.6-5.0); SODIUM 135.9 mmol/L (137-145); TRIGLYCERIDES 178 mg/dL (<150)
[2017-12-30 03:08] LABS: CREATINE KINASE MB 2.73 ng/mL (<4.55); TROPONIN I 0.563 ng/mL
[2017-12-30 03:11] LABS: DIRECT LDL 187 mg/dL (<100)
[2017-12-30 03:22] LABS: VLDL CHOLESTEROL 35.6 mg/dL (10-31)
[2017-12-30 08:37] LABS: CREATINE KINASE MB 3.1 ng/mL (<4.55); TROPONIN I 0.613 ng/mL
[2017-12-30] MEDS: INSULIN LISPRO 100 UNIT/ML 3 ML VIAL SUBCUT PRN ×3 (09:08→16:58)
[2017-12-30] MEDS: NORMAL SALINE 1000 ML 1,000 ML IV PRN (09:12)
[2017-12-30] MEDS ORDERED: ASPIRIN 325 MG TABLET, ENT COATED PO SCH (10:00)
[2017-12-30] MEDS: ASPIRIN 81 MG TABLET, CHEWABLE PO SCH (10:32)
[2017-12-30] MEDS: ESCITALOPRAM OXALATE 10 MG TABLET PO SCH (10:32)
[2017-12-30] MEDS: CLOPIDOGREL BISULFATE 75 MG TABLET PO SCH (10:32)
[2017-12-30] MEDS: PANTOPRAZOLE SODIUM 40 MG VIAL IV SCH (10:33)
[2017-12-30] MEDS: TAMSULOSIN HCL 0.4 MG CAP.SR.24H PO SCH (11:51)
[2017-12-30] MEDS: GABAPENTIN 100 MG CAPSULE PO SCH ×2 (13:42→17:00)
[2017-12-30] MEDS ORDERED: DEXTROSE 40% GEL 15 GM TUBE X 2 PO PRN (15:24)
[2017-12-30] MEDS ORDERED: GLUCAGON,HUMAN RECOMB 1 MG INJ IM PRN (15:24)
[2017-12-30] MEDS ORDERED: INSULIN LISPRO 100 UNIT/ML 3 ML VIAL SUBCUT PRN (15:24)
[2017-12-30] MEDS ORDERED: DEXTROSE 50%-WATER SYRINGE 12.5 GM/25 ML DOSE IV PRN (15:24)
[2017-12-30] MEDS ORDERED: DEXTROSE 50%-WATER SYRINGE 25 GM/50 ML DOSE IV PRN (15:24)
[2017-12-30] MEDS ORDERED: DEXTROSE 40% GEL 15 GM TUBE PO PRN (15:24)
[2017-12-30] MEDS: LORAZEPAM 0.5 MG TABLET PO PRN (16:34)
[2017-12-30] MEDS: ATORVASTATIN CALCIUM 20 MG TABLET PO SCH (21:55)
[2017-12-30] MEDS: HEPARIN SOD (PORCINE) 5,000 UNIT/ML 1 ML SYRINGE SUBCUT SCH (21:55)
--- NOTE | 2017-12-30 22:25 | PROGRESS NOTE E ---
Progress Note NAME: KVNG CHE : 1950 AGE: 67Y DATE: 12/30/2017 ROOM: 302 SUBJECTIVE: The patient was seen earlier today on rounds. The patient is not very responsive. The patient interacts better with his but is unable to follow any commands. He is completely aphasic for me. The patient was able to cooperate though for speech evaluation which was impressive. The patient is unable to articulate any concerns at this time. I had a lengthy discussion with the patient's regarding findings. Did reach out to [facility] to discuss the case. The patient continues on antiplatelet therapy as well as aspirin and a full dose of statin therapy. The patient is unable to articulate any concerns at this time. REVIEW OF SYSTEMS: The rest of the review of systems is unobtainable. MEDICATIONS: Medications have been reviewed. OBJECTIVE: GENERAL: The patient is a 67-year-old male who is awake, alert. Unable to fully assess orientation. He does not appear to be distressed. VITAL SIGNS: Temperature is 98.1, pulse 89, respirations 18, blood pressure 169/96, oxygen saturation is 98% on 2 liters nasal cannula. SKIN: Warm and dry. No rash. He is not diaphoretic. HEENT: Pupils are reactive. Conjunctivae are pink. There is no evidence of JVP. CARDIOVASCULAR: Heart is regular. No rub. CHEST: The patient does have some rhonchorous breath sounds in upper lung white, symmetrical, unlabored. ABDOMEN: Soft, nontender, nondistended. EXTREMITIES: No clubbing, cyanosis, edema. PSYCHIATRIC: Unable to fully assess. NEUROLOGIC: The patient's right side is near flaccid, does have some strength in the right lower extremity but still quite weak. The patient is unable to follow commands for me. DIAGNOSTICS: Lab values are as follows - hematology obtained on 12/30/17; WBC is 54.5, hemoglobin is 17.8, hematocrit is 51.4, platelet count of 249,000. Chemistry obtained on 12/30/2017; sodium is 135, potassium 4.3, chloride 99, carbon dioxide 18, BUN 14, creatinine is 1.74, glucose 329, calcium is 9.7. Triglycerides are 178, cholesterol is 271, LDL 187, VLDL is 35.6, HDL is 41. IMPRESSION AND PLAN: 1. LEFT POSTERIOR TEMPORAL CORTEX ISCHEMIC ACUTE CVA. CTA of the head and neck were consistent with occlusion of the intracranial left vertebral artery which is contralateral at this point. The patient does have some stenosis of his carotids but only at 50%. The patient appears to overall be of poor condition and the family is aware that rehab is the patient's most important step. The patient has been allowed permissive hypertension now for 24 hours. Will continue for yet another 24 and follow. 2. POORLY CONTROLLED DIABETES MELLITUS TYPE 2. The patient has been on multiple medications. He has had poor dietary compliance. Hopefully can achieve a little better glycemic control at this point. 3. HYPERTENSION. The patient is still within his permissive hypertension window. Will continue to work on good blood pressure control prior to discharge and follow. 4. CORONARY ARTERY DISEASE. The patient has been stented in the past. He is on baby aspirin a day as well as Plavix. Will follow. 5. DEPRESSION/ANXIETY. Continue the patient's homes medications. 6. CHRONIC PAIN. Continue his home medications. 7. DYSLIPIDEMIA. Again the patient is on full dose statin. 8. HIGH RISK FOR ASPIRATION. There is concern for aspiration, although the patient did well with his swallow study today and recommendations have been made. The patient did have a slight bump in white count and very low grade temperature at 99.3. I am concerned with this rattle in the patient's chest, therefore, we will obtain a chest x-ray and follow. My threshold for covering the patient for aspiration pneumonia at this time is quite low. CODE STATUS: The patient is a do not resuscitate/do not intubate as the patient's is completely clear about his desire for natural . DISPOSITION: Depending on the patient's symptomatology and diagnostic findings will reevaluate in the a.m. TIME SPENT: On this follow up, including assessment and plan, physical examination, patient education, review of records is 40 minutes. DICTATING PHYSICIAN: KVNG AVELAR NP [id number] PHY#: [id number] ID: [id number] JOB#: [id number] ACCT: [id number] cc: > [facility]
[2017-12-31 05:05] LABS: HEMATOCRIT 49.2 % (37.9-51.0); HEMOGLOBIN 17.2 g/dL (13.5-17.0); MEAN CORPUSCULAR HEMOGLOBIN 30.9 pg (27.0-33.4); MEAN CORPUSCULAR VOLUME 88 fl (80-97); PLATELET COUNT 243 10^3/uL (150-450); RED BLOOD COUNT 5.59 10^6/uL (4.35-5.55); RED CELL DISTRIBUTION WIDTH 13.5 % (11.5-14.0); WHITE BLOOD COUNT 13.2 10^3/uL (4.0-10.5)
[2017-12-31] MEDS: HEPARIN SOD (PORCINE) 5,000 UNIT/ML 1 ML SYRINGE SUBCUT SCH ×3 (05:28→22:40)
[2017-12-31] MEDS: LANSOPRAZOLE 30 MG TAB.RAP.DR PO SCH (05:28)
[2017-12-31 05:40] LABS: ANION GAP 18 (5-19); BLOOD UREA NITROGEN 21 mg/dL (7-20); CALCIUM 9.1 mg/dL (8.4-10.2); CARBON DIOXIDE 18 mmol/L (22-30); CHLORIDE 96 mmol/L (98-107); GLUCOSE 203 mg/dL (75-110); POTASSIUM 4.3 mmol/L (3.6-5.0); SODIUM 131.8 mmol/L (137-145)
[2017-12-31] MEDS: INSULIN LISPRO 100 UNIT/ML 3 ML VIAL SUBCUT PRN ×3 (08:31→17:16)
[2017-12-31] MEDS: LORAZEPAM 0.5 MG TABLET PO PRN ×2 (08:31→17:16)
--- NOTE | 2017-12-31 08:38 | RADIOLOGY REPORT (SQ) ---
EXAM DESCRIPTION: CHEST SINGLE VIEW COMPLETED DATE/TIME: 12/31/2017 7:46 am REASON FOR STUDY: possible aspiration COMPARISON: AP chest 12/29/2017 CT abdomen pelvis 05/22/2017 EXAM PARAMETERS: NUMBER OF VIEWS: One view. TECHNIQUE: Single frontal radiographic view of the chest acquired. RADIATION DOSE: NA LIMITATIONS: None. FINDINGS: LUNGS AND PLEURA: No opacities, masses or pneumothorax. No pleural effusion. MEDIASTINUM AND HILAR STRUCTURES: No masses. Contour normal. HEART AND VASCULAR STRUCTURES: Mild cardiomegaly BONES: No acute findings. HARDWARE: Faintly radiopaque right-sided ventriculoperitoneal shunt tubing over the chest. OTHER: No other significant finding. IMPRESSION: NO ACUTE RADIOGRAPHIC FINDING IN THE CHEST. TECHNICAL DOCUMENTATION: JOB ID: [id number] [employer]- All Rights Reserved Reading location - IP/workstation name: [facility]
[2017-12-31] MEDS: MONTELUKAST SODIUM 10 MG TABLET PO SCH (10:12)
[2017-12-31] MEDS: CLOPIDOGREL BISULFATE 75 MG TABLET PO SCH (10:12)
[2017-12-31] MEDS: ESCITALOPRAM OXALATE 10 MG TABLET PO SCH (10:12)
[2017-12-31] MEDS: ASPIRIN 81 MG TABLET, CHEWABLE PO SCH (10:12)
[2017-12-31] MEDS: PANTOPRAZOLE SODIUM 40 MG VIAL IV SCH (10:12)
[2017-12-31] MEDS: TAMSULOSIN HCL 0.4 MG CAP.SR.24H PO SCH (10:12)
[2017-12-31] MEDS: GABAPENTIN 100 MG CAPSULE PO SCH ×3 (10:12→17:16)
[2017-12-31] MEDS ORDERED: (PENDING PHARMACY ID) (Zolpidem Tartrate [Ambien] 10 MG) PO PRN (11:28)
--- NOTE | 2017-12-31 11:37 | PDOC PROGRESS REPORT ---
Subjective Progress Note for:: 12/31/17 Subjective:: Patient is seen resting in bed. is at the bedside. He continues to be aphasic. He will occasionally shake his head yes or no to questions. He is able to swallow better today. Is now tolerating a diet and taking his pills. He is some improved strength in the right arm and right leg. Unable to do review of systems due to his present status. Condition was discussed with the patient and his . Emotional support was given. is quite tearful today. We discussed options for post discharge care. Reason For Visit: CVA Physical Exam Vital Signs: Temp Pulse Resp BP Pulse Ox 97.7 F 86 18 157/92 H 100 12/31/17 07:51 12/31/17 07:51 12/31/17 07:51 12/31/17 07:51 12/31/17 08:44 Intake & Output 12/30/17 12/31/17 01/01/18 06:59 06:59 06:59 Intake Total 800 1253 Output Total 2400 1600 Balance -1600 -347 Weight 65.4 kg 93.1 kg General appearance: PRESENT: no acute distress, obese, well-developed, well- nourished Head exam: PRESENT: atraumatic, normocephalic Eye exam: PRESENT: conjunctiva pink, EOMI, PERRLA. ABSENT: scleral icterus Ear exam: PRESENT: normal external ear exam Mouth exam: PRESENT: moist, tongue midline Neck exam: ABSENT: carotid bruit, JVD, lymphadenopathy, thyromegaly Respiratory exam: PRESENT: clear to auscultation олег. ABSENT: rales, rhonchi, wheezes Cardiovascular exam: PRESENT: RRR. ABSENT: diastolic murmur, rubs, systolic murmur Pulses: PRESENT: normal dorsalis pedis pul Vascular exam: PRESENT: normal capillary refill GI/Abdominal exam: PRESENT: normal bowel sounds, soft. ABSENT: distended, guarding, mass, organolmegaly, rebound, tenderness Rectal exam: PRESENT: deferred Extremities exam: PRESENT: other - 2/5 muscle strength in right extremities, 5/ 5 the left. ABSENT: calf tenderness, clubbing, pedal edema Musculoskeletal exam: PRESENT: other - As above. Neurological exam: PRESENT: alert, awake, CN II-XII grossly intact, aphasic, other - 2/5 Muscle strength in right-sided extremities, 5/5 on left Psychiatric exam: PRESENT: appropriate affect, normal mood Skin exam: PRESENT: dry, intact, warm. ABSENT: cyanosis, rash Results Laboratory Results: 12/31/17 04:00 12/31/17 04:00 12/31/17 12/31/17 04:00 04:00 WBC 13.2 H RBC 5.59 H Hgb 17.2 H Hct 49.2 MCV 88 MCH 30.9 MCHC 35.0 RDW 13.5 Plt Count 243 Sodium 131.8 L Potassium 4.3 Chloride 96 L Carbon Dioxide 18 L Anion Gap 18 BUN 21 H Creatinine 0.63 Est GFR ( Amer) > 60 Est GFR (Non-Af Amer) > 60 Glucose 203 H Calcium 9.1 12/29/17 12/29/17 12/30/17 19:55 19:55 01:55 Creatine Kinase 89 124 CK-MB (CK-2) 2.80 Troponin I 0.348 12/30/17 12/30/17 12/30/17 01:55 07:49 07:49 Creatine Kinase 138 CK-MB (CK-2) 2.73 3.10 Troponin I 0.563 0.613 Impressions: Head CTA 12/29/17 00:00 IMPRESSION: 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 Normal opacification of the [place]. 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 Up to 50% stenosis of the left internal carotid artery and left common carotid artery. No significant stenosis of the right carotid or vertebral arteries. Head CT 12/29/17 13:25 IMPRESSION: Acute or early subacute nonhemorrhagic infarct left posterior temporal cortex and subcortical white matter. 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 No hydrocephalus. Intraventricular drainage catheters are unchanged from prior studies. EVIDENCE OF ACUTE STROKE: Yes Chest X-Ray 12/31/17 06:00 IMPRESSION: NO ACUTE RADIOGRAPHIC FINDING IN THE CHEST. Assessment & Plan - Diagnosis (1) Ischemic stroke Is this a current diagnosis for this admission?: Yes Plan: Patient is presently on aspirin, Plavix and statin. Was discussed with [facility]. PT, speech, occupational therapy and case management are consulted. Patient will need at least short-term rehab post discharge.. He is not safe for discharge to home. Discussed with and patient. All their questions were answered to their satisfaction. (2) Coronary artery disease Is this a current diagnosis for this admission?: Yes Plan: Continue aspirin, Plavix and statin (3) Depression with anxiety Is this a current diagnosis for this admission?: Yes Plan: Continue home medications. Restart BuSpar (4) Hypertension Qualifiers: Hypertension type: essential hypertension Qualified Code(s): I10 - Essential (primary) hypertension Is this a current diagnosis for this admission?: Yes Plan: He is presently normotensive on current medications. (5) Morbid obesity Is this a current diagnosis for this admission?: Yes Plan: Counseled (6) Poorly controlled type 2 diabetes mellitus Is this a current diagnosis for this admission?: Yes Plan: We will restart basal insulin now that he is eating. Continue sliding scale. Dose adjustment as is warranted (7) Chronic pain Qualifiers: Chronic pain type: chronic pain syndrome Qualified Code(s): G89.4 - Chronic pain syndrome Is this a current diagnosis for this admission?: Yes Plan: We will continue home opiate analgesic - Time Time Spent with patient: 25-34 minutes Total Critical Time (Minutes): 20 Medications reviewed and adjusted accordingly: Yes Anticipated discharge: Acute Rehab Within: when bed available - Inpatient Certification Medical Necessity: Need for Neurological Checks, Risk of Complication if Not Cared For in Hospital
[2017-12-31] MEDS: BUSPIRONE HCL 10 MG TABLET PO SCH ×2 (14:14→17:16)
[2017-12-31] MEDS: ZOLPIDEM TARTRATE 5 MG TABLET PO PRN (22:40)
[2017-12-31] MEDS: INSULIN DETEMIR 100 UNIT/ML 3 ML PEN SUBCUT SCH (22:40)
[2017-12-31] MEDS: ATORVASTATIN CALCIUM 20 MG TABLET PO SCH (22:40)
[2018-01-01] MEDS: LORAZEPAM 0.5 MG TABLET PO PRN (01:20)
[2018-01-01] MEDS: LANSOPRAZOLE 30 MG TAB.RAP.DR PO SCH (05:31)
[2018-01-01] MEDS: HEPARIN SOD (PORCINE) 5,000 UNIT/ML 1 ML SYRINGE SUBCUT SCH ×3 (05:31→21:51)
[2018-01-01 05:45] LABS: ANION GAP 13 (5-19); BLOOD UREA NITROGEN 18 mg/dL (7-20); CALCIUM 8.9 mg/dL (8.4-10.2); CARBON DIOXIDE 22 mmol/L (22-30); CHLORIDE 95 mmol/L (98-107); GLUCOSE 230 mg/dL (75-110); POTASSIUM 3.9 mmol/L (3.6-5.0)
[2018-01-01] MEDS: INSULIN LISPRO 100 UNIT/ML 3 ML VIAL SUBCUT PRN ×3 (08:32→17:44)
[2018-01-01] MEDS ORDERED: (PENDING PHARMACY ID) (Fesoterodine Fumarate [Toviaz] 4 MG) PO SCH (10:00)
[2018-01-01] MEDS ORDERED: (PENDING PHARMACY ID) (Mirabegron [Myrbetriq] 50 MG) PO SCH (10:00)
[2018-01-01] MEDS: ASPIRIN 81 MG TABLET, CHEWABLE PO SCH (10:13)
[2018-01-01] MEDS: GABAPENTIN 100 MG CAPSULE PO SCH ×3 (10:14→17:44)
[2018-01-01] MEDS: BUSPIRONE HCL 10 MG TABLET PO SCH ×3 (10:14→17:44)
[2018-01-01] MEDS: MONTELUKAST SODIUM 10 MG TABLET PO SCH (10:14)
[2018-01-01] MEDS: CLOPIDOGREL BISULFATE 75 MG TABLET PO SCH (10:14)
[2018-01-01] MEDS: ESCITALOPRAM OXALATE 10 MG TABLET PO SCH (10:14)
[2018-01-01] MEDS: TAMSULOSIN HCL 0.4 MG CAP.SR.24H PO SCH (10:14)
--- NOTE | 2018-01-01 18:32 | XCELERA REPORT ---
[address] [address] Transthoracic Echocardiogram Report Name: KVNG CHE Age: 67 yrs Gender: Male : 1950 Patient Status: Inpatient Patient Location: [address] [place] [address] Study Date: 01/01/2018 02:24 PM Height: 68 in Weight: 205 lb BSA: 2.1 m2 Procedure: A complete two-dimensional transthoracic echocardiogram was performed (2D, M-mode, spectral and color flow Doppler). The study was technically difficult with many images being suboptimal in quality. Reason For Study: CVA Ordering Physician: EDENILSON TENORIO Performed By: Junaid Goldstein Interpretation Summary The left ventricular ejection fraction is normal. There is borderline concentric left ventricular hypertrophy. The left ventricle is grossly normal size. Doppler measurements suggest pseudonormalized left ventricular relaxation, which is associated with grade II/IV or mild to moderate diastolic dysfunction Wall motion cannot be accurately commented on, but no definite regional wall motion abnormalities noted. The right ventricle is grossly normal size. Right ventricular function cannot be assessed due to poor image quality. The right atrium is normal in size The left atrial size is normal. There is a trace amount of mitral regurgitation There is no mitral valve stenosis. There is no aortic valve stenosis No aortic regurgitation is present. There is a trace or physiologic amount of tricuspid regurgitation Tricuspid regurgitation jet envelope not well defined to measure RV systolic pressure accurately. The aortic root is not well visualized. The inferior vena cava appeared normal and decreased < 50% with respiration (RAP 10-15 mmHg) Minimal pericardial effusion. MMode/2D Measurements & Calculations RVDd: 3.0 cm LVIDd: 4.6 cm FS: 33.0 % Ao root diam: 3.3 cm IVSd: 0.90 cm LVIDs: 3.1 cm EDV(Teich): 98.6 ml LVPWd: 1.1 cm ESV(Teich): 37.9 ml Ao root area: 8.7 cm2 EF(Teich): 61.5 % LA dimension: 2.8 cm LVOT diam: 2.3 cm LVOT area: 4.1 cm2 Doppler Measurements & Calculations MV E max jesús: MV P1/2t max jesús: Ao V2 max: LV V1 max P.7 cm/sec 84.7 cm/sec 156.4 cm/sec 2.9 mmHg MV A max jesús: MV P1/2t: 65.2 msec Ao max PG: LV V1 max: 114.7 cm/sec MVA(P1/2t): 3.4 cm2 9.8 mmHg 84.4 cm/sec MV E/A: 0.61 MV dec slope: VAISHALI(V,D): 2.2 cm2 380.5 cm/sec2 MV dec time: 0.37 sec PA V2 max: 93.8 cm/sec PA max P.5 mmHg Left Ventricle The left ventricle is grossly normal size. There is borderline concentric left ventricular hypertrophy. The left ventricular ejection fraction is normal. Doppler measurements suggest pseudonormalized left ventricular relaxation, which is associated with grade II/IV or mild to moderate diastolic dysfunction. Wall motion cannot be accurately commented on, but no definite regional wall motion abnormalities noted. Right Ventricle The right ventricle is grossly normal size. There is normal right ventricular wall thickness. Right ventricular function cannot be assessed due to poor image quality. Atria The right atrium is normal in size. The left atrial size is normal. Interarterial septum not well visualized and not well dopplered. Cannot comment on ASD/PFO presence. Mitral Valve There is mild mitral annular calcification. There is mild mitral leaflet calcification. There is no mitral valve stenosis. There is a trace amount of mitral regurgitation. Aortic Valve The aortic valve is mildly calcified. There is no aortic valve stenosis. No aortic regurgitation is present. Tricuspid Valve The tricuspid valve is not well visualized secondary to technical limitations. There is no tricuspid stenosis. There is a trace or physiologic amount of tricuspid regurgitation. Tricuspid regurgitation jet envelope not well defined to measure RV systolic pressure accurately. Pulmonic Valve The pulmonic valve is not well visualized. Great Vessels The aortic root is not well visualized. The inferior vena cava appeared normal and decreased < 50% with respiration (RAP 10-15 mmHg). Effusions Minimal pericardial effusion. Incidental Findings No definite cardiac source of CVA/TIA noted on this particular trans- thoracic study. Consider [facility] if clinically indicated. May consider mobile cardiac telemetry monitoring (MCT) for ruling out transient AFIB. : RYAN TENORIOC > Jayden Fox
--- NOTE | 2018-01-01 19:14 | PDOC PROGRESS REPORT ---
Subjective Progress Note for:: 01/01/18 Subjective:: Patient is a 5-year-old male past medical history significant for uncontrolled diabetes, obesity, hypertension who was admitted on 12/29/17 for CVA. Patient seen on morning rounds with his present. He is found resting in bed comfortably on room air. He is awake and alert; attempting to participate in conversation but obviously frustrated by his inability to speak clearly. He does follow directions and is capable of straight leg lift bilaterally. He is able to reach with his right hand but has poor coordination. The is bothered by the patient's frustration, labile mood, and increased anger. We discussed how stroke can cause personality and behavioral changes; patient was encouraged to continue to make attempts to move and speak. They were both reassured that with physical therapy he may regain some function. Reason For Visit: CVA Physical Exam Vital Signs: Temp Pulse Resp BP Pulse Ox 97.6 F 79 12 124/68 93 01/01/18 16:29 01/01/18 16:29 01/01/18 16:29 01/01/18 16:29 01/01/18 16:29 Intake & Output 12/31/17 01/01/18 01/02/18 06:59 06:59 06:59 Intake Total 1253 30 670 Output Total 1600 2300 460 Balance -347 -2270 210 Weight 93.1 kg 93.1 kg General appearance: PRESENT: no acute distress, obese, well-developed, well- nourished Head exam: PRESENT: atraumatic, normocephalic Eye exam: PRESENT: conjunctiva pink, EOMI, PERRLA. ABSENT: scleral icterus Mouth exam: PRESENT: moist, tongue midline Neck exam: ABSENT: carotid bruit, JVD, lymphadenopathy, thyromegaly Respiratory exam: PRESENT: clear to auscultation олег. ABSENT: rales, rhonchi, wheezes Cardiovascular exam: PRESENT: RRR. ABSENT: diastolic murmur, rubs, systolic murmur Pulses: PRESENT: normal dorsalis pedis pul Vascular exam: PRESENT: normal capillary refill GI/Abdominal exam: PRESENT: normal bowel sounds, soft. ABSENT: distended, guarding, mass, organolmegaly, rebound, tenderness Rectal exam: PRESENT: deferred Extremities exam: PRESENT: full ROM. ABSENT: calf tenderness, clubbing, pedal edema Neurological exam: PRESENT: alert, awake, oriented to person, CN II-XII grossly intact, other - 2/5 RUE, 3/5 RLE, 5/5 on left. ABSENT: motor sensory deficit Psychiatric exam: PRESENT: appropriate affect, normal mood. ABSENT: homicidal ideation, suicidal ideation Skin exam: PRESENT: dry, intact, warm. 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 Normal opacification of the [place]. 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 Up to 50% stenosis of the left internal carotid artery and left common carotid artery. No significant stenosis of the right carotid or vertebral arteries. Head CT 12/29/17 13:25 IMPRESSION: Acute or early subacute nonhemorrhagic infarct left posterior temporal cortex and subcortical white matter. 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 No hydrocephalus. Intraventricular drainage catheters are unchanged from prior studies. EVIDENCE OF ACUTE STROKE: Yes Chest X-Ray 12/31/17 06:00 IMPRESSION: NO ACUTE RADIOGRAPHIC FINDING IN THE CHEST. Assessment & Plan - Diagnosis (1) Ischemic stroke Is this a current diagnosis for this admission?: Yes Plan: Nonhemorrhagic left posterior temporal cortex stroke. Unable to obtain MRI secondary to ventricular shunts. Neck and head CT revealed occlusion of the intracranial left vertebral artery with normal [place]. Echocardiogram is benign. Patient has remained in normal sinus rhythm throughout admission. Hemoglobin A1c 9.1% Lipid panel is suboptimal; HDL 41, LDL 187, triglycerides 178, total cholesterol 271. Continue aspirin, Plavix, and statin therapy. Aggressive diabetes management. Registered dietitian and patient educator are asked to see the patient. PT/OT/ST therapy are consulted. At this time, patient is stable for discharge to SNF for acute rehabilitation. (2) Coronary artery disease Is this a current diagnosis for this admission?: Yes Plan: Continue aspirin, Plavix, statin therapy. Remaining plan as above. (3) Depression with anxiety Is this a current diagnosis for this admission?: Yes Plan: Continue home medications. (4) Hypertension Qualifiers: Hypertension type: essential hypertension Qualified Code(s): I10 - Essential (primary) hypertension Is this a current diagnosis for this admission?: Yes Plan: The patient is currently normotensive. (5) Poorly controlled type 2 diabetes mellitus Is this a current diagnosis for this admission?: Yes Plan: Hemoglobin A1c of 9.1%. Consistent carb diet. Accu-Cheks before meals and at bedtime with Humalog for sliding scale coverage. Levemir 30 units nightly. Registered dietitian and clinical unit educator have been consulted. (6) Chronic pain Qualifiers: Chronic pain type: chronic pain syndrome Qualified Code(s): G89.4 - Chronic pain syndrome Is this a current diagnosis for this admission?: Yes Plan: We will continue the patient's home dose medications. - Time Time Spent with patient: 25-34 minutes Medications reviewed and adjusted accordingly: Yes Anticipated discharge: Acute Rehab Within: when bed available
[2018-01-01] MEDS: ATORVASTATIN CALCIUM 20 MG TABLET PO SCH (21:51)
[2018-01-01] MEDS: INSULIN DETEMIR 100 UNIT/ML 3 ML PEN SUBCUT SCH (21:51)
[2018-01-01] MEDS: ZOLPIDEM TARTRATE 5 MG TABLET PO PRN (23:18)
[2018-01-02 05:09] LABS: HEMATOCRIT 49.6 % (37.9-51.0); HEMOGLOBIN 17.6 g/dL (13.5-17.0); MEAN CORPUSCULAR HEMOGLOBIN 31.4 pg (27.0-33.4); MEAN CORPUSCULAR HGB CONC 35.5 g/dL (32.0-36.0); MEAN CORPUSCULAR VOLUME 88 fl (80-97); PLATELET COUNT 210 10^3/uL (150-450); RED BLOOD COUNT 5.62 10^6/uL (4.35-5.55); WHITE BLOOD COUNT 10.8 10^3/uL (4.0-10.5)
[2018-01-02 05:25] LABS: ANION GAP 12 (5-19); BLOOD UREA NITROGEN 19 mg/dL (7-20); CALCIUM 8.8 mg/dL (8.4-10.2); CARBON DIOXIDE 21 mmol/L (22-30); CHLORIDE 102 mmol/L (98-107); GLUCOSE 287 mg/dL (75-110); SODIUM 135.1 mmol/L (137-145)
[2018-01-02] MEDS: LANSOPRAZOLE 30 MG TAB.RAP.DR PO SCH (08:40)
[2018-01-02] MEDS: HEPARIN SOD (PORCINE) 5,000 UNIT/ML 1 ML SYRINGE SUBCUT SCH ×3 (08:43→21:42)
[2018-01-02] MEDS: INSULIN LISPRO 100 UNIT/ML 3 ML VIAL SUBCUT PRN ×3 (08:44→17:21)
[2018-01-02] MEDS: GABAPENTIN 100 MG CAPSULE PO SCH ×3 (09:59→17:13)
[2018-01-02] MEDS: BUSPIRONE HCL 10 MG TABLET PO SCH ×3 (09:59→17:13)
[2018-01-02] MEDS: ESCITALOPRAM OXALATE 10 MG TABLET PO SCH (09:59)
[2018-01-02] MEDS: MONTELUKAST SODIUM 10 MG TABLET PO SCH (09:59)
[2018-01-02] MEDS: TAMSULOSIN HCL 0.4 MG CAP.SR.24H PO SCH (10:00)
[2018-01-02] MEDS: ASPIRIN 81 MG TABLET, CHEWABLE PO SCH (10:00)
[2018-01-02] MEDS: CLOPIDOGREL BISULFATE 75 MG TABLET PO SCH (10:00)
[2018-01-02] MEDS ORDERED: HYDROCODONE PO PRN (12:31)
[2018-01-02] MEDS ORDERED: [UNRECOGNIZED DRUG - OTHER] PO PRN (12:31)
[2018-01-02] MEDS ORDERED: ACETAMINOPHEN PO PRN (12:31)
[2018-01-02] MEDS ORDERED: COLCHICINE 0.6 MG TABLET PO ONE (16:53)
[2018-01-02] MEDS ORDERED: KETOROLAC TROMETHAMINE INJ/PF 30 MG/1 ML SDV IV ONE (16:53)
--- NOTE | 2018-01-02 17:03 | PDOC PROGRESS REPORT ---
Subjective Progress Note for:: 01/02/18 Subjective:: Patient is a 5-year-old male past medical history significant for uncontrolled diabetes, obesity, hypertension who was admitted on 12/29/17 for CVA. Patient seen on afternoon rounds with his present. He is found resting in bed comfortably on room air. He is alert and oriented to self and situation. It is unclear if he is disoriented to place and time or simply unable to articulate. Expressive the patient is significantly improved today with near complete sentences without slurred speech. The patient was unable to walk today secondary to right hand pain. The patient has developed erythema, edema, and severe pain to his right third MP joint ( suspicious for gout). He denies injury. His does report that he fell multiple times prior to coming to the emergency department so possibility of trauma to success. Otherwise, the patient states that he is feeling well today and denies chest pain, palpitations, headache, and dyspnea. They have no other questions or concerns at this time. Reason For Visit: CVA Physical Exam Vital Signs: Temp Pulse Resp BP Pulse Ox 97.5 F 89 13 124/90 H 98 01/02/18 15:12 01/02/18 15:12 01/02/18 15:12 01/02/18 15:12 01/02/18 15:12 Intake & Output 01/01/18 01/02/18 01/03/18 06:59 06:59 06:59 Intake Total 30 1043 1320 Output Total 2300 460 1750 Balance -2270 583 -430 Weight 93.1 kg 94.9 kg General appearance: PRESENT: no acute distress, cooperative, obese, well- developed, well-nourished Head exam: PRESENT: atraumatic, normocephalic Eye exam: PRESENT: conjunctiva pink, EOMI, PERRLA. ABSENT: scleral icterus Ear exam: PRESENT: normal external ear exam Mouth exam: PRESENT: moist, tongue midline Neck exam: ABSENT: carotid bruit, JVD, lymphadenopathy, thyromegaly Respiratory exam: PRESENT: clear to auscultation олег, symmetrical, unlabored. ABSENT: rales, rhonchi, wheezes Cardiovascular exam: PRESENT: RRR, +S1, +S2. ABSENT: diastolic murmur, rubs, systolic murmur Pulses: PRESENT: normal dorsalis pedis pul Vascular exam: PRESENT: normal capillary refill GI/Abdominal exam: PRESENT: normal bowel sounds, soft. ABSENT: distended, guarding, mass, organolmegaly, rebound, tenderness Rectal exam: PRESENT: deferred Extremities exam: PRESENT: joint swelling - Right third MP joint erythema, edema , and pain. reduced telegraph inspector strength secondary to pain.. ABSENT: calf tenderness , clubbing, pedal edema Neurological exam: PRESENT: alert, awake, oriented to person, oriented to situation, CN II-XII grossly intact, aphasic - Significant improvement overnight , other - 2/5 RUE, 3/5 RLE, 5/5 on left. Reduced telegraph inspector strength today secondary to pain. ABSENT: oriented to place, oriented to time, motor sensory deficit Psychiatric exam: PRESENT: appropriate affect, normal mood. ABSENT: homicidal ideation, suicidal ideation Skin exam: PRESENT: dry, intact, warm. ABSENT: cyanosis, rash Results Laboratory Results: 01/02/18 04:01 01/02/18 04:01 01/02/18 01/02/18 04:01 04:01 WBC 10.8 H RBC 5.62 H Hgb 17.6 H Hct 49.6 MCV 88 MCH 31.4 MCHC 35.5 RDW 13.0 Plt Count 210 Sodium 135.1 L Potassium 4.0 Chloride 102 Carbon Dioxide 21 L Anion Gap 12 BUN 19 Creatinine 0.76 Est GFR ( Amer) > 60 Est GFR (Non-Af Amer) > 60 Glucose 287 H Calcium 8.8 12/29/17 12/29/17 12/30/17 19:55 19:55 01:55 Creatine Kinase 89 124 CK-MB (CK-2) 2.80 Troponin I 0.348 12/30/17 12/30/17 12/30/17 01:55 07:49 07:49 Creatine Kinase 138 CK-MB (CK-2) 2.73 3.10 Troponin I 0.563 0.613 Impressions: Head CTA 12/29/17 00:00 IMPRESSION: 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 Normal opacification of the [place]. 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 Up to 50% stenosis of the left internal carotid artery and left common carotid artery. No significant stenosis of the right carotid or vertebral arteries. Head CT 12/29/17 13:25 IMPRESSION: Acute or early subacute nonhemorrhagic infarct left posterior temporal cortex and subcortical white matter. 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 No hydrocephalus. Intraventricular drainage catheters are unchanged from prior studies. EVIDENCE OF ACUTE STROKE: Yes Chest X-Ray 12/31/17 06:00 IMPRESSION: NO ACUTE RADIOGRAPHIC FINDING IN THE CHEST. Assessment & Plan - Diagnosis (1) Ischemic stroke Is this a current diagnosis for this admission?: Yes Plan: Nonhemorrhagic left posterior temporal cortex stroke. Unable to obtain MRI secondary to ventricular shunts. Neck and head CT revealed occlusion of the intracranial left vertebral artery with normal [place]. Echocardiogram is benign. Patient has remained in normal sinus rhythm throughout admission. Hemoglobin A1c 9.1% Lipid panel is suboptimal; HDL 41, LDL 187, triglycerides 178, total cholesterol 271. Continue aspirin, Plavix, and statin therapy. Aggressive diabetes management. Registered dietitian and patient educator are asked to see the patient. PT/OT/ST therapy are consulted. At this time, patient is stable for discharge to SNF for acute rehabilitation. (2) Coronary artery disease Is this a current diagnosis for this admission?: Yes Plan: Continue aspirin, Plavix, statin therapy. Remaining plan as above. (3) Depression with anxiety Is this a current diagnosis for this admission?: Yes Plan: Continue home medications. (4) Hypertension Qualifiers: Hypertension type: essential hypertension Qualified Code(s): I10 - Essential (primary) hypertension Is this a current diagnosis for this admission?: Yes Plan: The patient is currently normotensive. (5) Poorly controlled type 2 diabetes mellitus Is this a current diagnosis for this admission?: Yes Plan: Hemoglobin A1c of 9.1%. Consistent carb diet. Accu-Cheks before meals and at bedtime with Humalog for sliding scale coverage. Levemir 32 units nightly. Registered dietitian and clinical informatics educator have been consulted. (6) Chronic pain Qualifiers: Chronic pain type: chronic pain syndrome Qualified Code(s): G89.4 - Chronic pain syndrome Is this a current diagnosis for this admission?: Yes Plan: We will continue the patient's home dose medications. (7) Right hand pain Is this a current diagnosis for this admission?: Yes Plan: Sudden onset of erythema, edema, and pain to right third MP joint; highly suspicious for gout. However, patient did have a fall the night prior to his admission. We will evaluate with x-ray to rule out occult fracture that may have displaced when ambulating using front wheeled walker yesterday. No history of gout, will check uric acid level. We will provide colchicine 1.2 mg followed by 0.6 mg in 1 hour. We will continue daily if uric acid level is elevated. Toradol 15 mg 1. Oxycodone 5 mg every 4 hours as needed pain. Limited NSAID use secondary to concurrent aspirin, Plavix, heparin therapy. - Time Time Spent with patient: 15-24 minutes Medications reviewed and adjusted accordingly: Yes Anticipated discharge: Acute Rehab Within: when bed available
--- NOTE | 2018-01-02 18:08 | RADIOLOGY REPORT (SQ) ---
EXAM DESCRIPTION: HAND RIGHT 2 VIEWS COMPLETED DATE/TIME: 01/02/2018 5:21 pm REASON FOR STUDY: Edema and pain to 3rd MIP; fall 3 days ago COMPARISON: None. EXAM PARAMETERS: NUMBER OF VIEWS: Three views. TECHNIQUE: AP, lateral and oblique radiographic images acquired of the right hand. LIMITATIONS: Study is limited due to the patient's condition and portable technique. FINDINGS: MINERALIZATION: Normal. BONES: No acute fracture or dislocation. No worrisome bone lesions. JOINTS: Mild osteoarthritic changes are identified at several of the interphalangeal joints. SOFT TISSUES: No soft tissue swelling. No foreign body. OTHER: No other significant finding. IMPRESSION: Somewhat limited study as noted above. No definite evidence for acute fracture or dislo cation. Other findings as noted above TECHNICAL DOCUMENTATION: JOB ID: [id number] [employer]- All Rights Reserved Reading location - IP/workstation name: [email or web address]
[2018-01-02] MEDS: ZOLPIDEM TARTRATE 5 MG TABLET PO PRN (21:38)
[2018-01-02] MEDS: ATORVASTATIN CALCIUM 20 MG TABLET PO SCH (21:38)
[2018-01-02] MEDS ORDERED: INSULIN DETEMIR 100 UNIT/ML 3 ML PEN SUBCUT SCH (22:00)
[2018-01-03] MEDS: OXYCODONE HCL IR 5 MG TABLET PO PRN ×3 (02:35→16:15)
[2018-01-03 05:19] LABS: HEMATOCRIT 47.9 % (37.9-51.0); HEMOGLOBIN 16.9 g/dL (13.5-17.0); RED BLOOD COUNT 5.43 10^6/uL (4.35-5.55); WHITE BLOOD COUNT 8.5 10^3/uL (4.0-10.5)
[2018-01-03 05:20] LABS: MEAN CORPUSCULAR HEMOGLOBIN 31.1 pg (27.0-33.4); MEAN CORPUSCULAR HGB CONC 35.3 g/dL (32.0-36.0); MEAN CORPUSCULAR VOLUME 88 fl (80-97); PLATELET COUNT 189 10^3/uL (150-450)
[2018-01-03 05:38] LABS: ANION GAP 12 (5-19); BLOOD UREA NITROGEN 14 mg/dL (7-20); CARBON DIOXIDE 23 mmol/L (22-30); CHLORIDE 101 mmol/L (98-107); GLUCOSE 255 mg/dL (75-110); POTASSIUM 3.9 mmol/L (3.6-5.0); SODIUM 136.4 mmol/L (137-145)
[2018-01-03] MEDS: LANSOPRAZOLE 30 MG TAB.RAP.DR PO SCH (06:01)
[2018-01-03] MEDS: HEPARIN SOD (PORCINE) 5,000 UNIT/ML 1 ML SYRINGE SUBCUT SCH ×2 (06:01→13:29)
[2018-01-03] MEDS: INSULIN LISPRO 100 UNIT/ML 3 ML VIAL SUBCUT PRN ×2 (07:46→12:23)
[2018-01-03] MEDS ORDERED: COLCHICINE 0.6 MG TABLET PO SCH (10:00)
[2018-01-03] MEDS: MONTELUKAST SODIUM 10 MG TABLET PO SCH (10:38)
[2018-01-03] MEDS: CLOPIDOGREL BISULFATE 75 MG TABLET PO SCH (10:38)
[2018-01-03] MEDS: BUSPIRONE HCL 10 MG TABLET PO SCH ×2 (10:38→13:28)
[2018-01-03] MEDS: ESCITALOPRAM OXALATE 10 MG TABLET PO SCH (10:39)
[2018-01-03] MEDS: GABAPENTIN 100 MG CAPSULE PO SCH ×2 (10:39→13:28)
[2018-01-03] MEDS: ASPIRIN 81 MG TABLET, CHEWABLE PO SCH (10:39)
[2018-01-03] MEDS: TAMSULOSIN HCL 0.4 MG CAP.SR.24H PO SCH (10:41)
[2018-01-03 12:38] VITALS: BP 136/78
--- NOTE | 2018-01-03 15:10 | PDOC TRANSFER SUMMARY ---
General - Admit/Disc Date/PCP Admission Date/Primary Care Provider: 12/29/17 15:20 KVNG SINGLETON MD Discharge Date: 01/03/18 - Discharge Diagnosis (1) Ischemic stroke Is this a current diagnosis for this admission?: Yes Summary: Nonhemorrhagic left posterior temporal cortex stroke. Unable to obtain MRI secondary to ventricular shunts. Neck and head CT revealed occlusion of the intracranial left vertebral artery with normal [place] of [place]. Echocardiogram is benign. Patient has remained in normal sinus rhythm throughout admission. Hemoglobin A1c 9.1% Lipid panel is suboptimal; HDL 41, LDL 187, triglycerides 178, total cholesterol 271. The patient was admitted to [facility] on continuous cardiac telemetry; he has remained in normal sinus rhythm throughout his admission. He was started on aspirin, Plavix, and statin therapy. Aggressive diabetes management was initiated. PT/OT/ST therapy are consulted. 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 He was placed on colchicine with improved symptoms. Speech therapy has upgraded the patient to thin liquids and chopped meat diet. At time of discharge, the patient is in stable condition, maintaining oxygen saturations on room air, ambulatory 2-3 steps with front-wheeled walker and standby assistance, tolerating a regular diet and is normotensive. The patient is discharged to SNF for acute rehabilitation. (2) Coronary artery disease Is this a current diagnosis for this admission?: Yes Summary: As above. (3) Depression with anxiety Is this a current diagnosis for this admission?: Yes Summary: The patient's home medications were continued while inpatient; BuSpar 10 mg every morning, Lexapro 20 mg daily, and Ativan 0.25 mg 3 times daily as needed with adequate control of symptoms. (4) Hypertension Is this a current diagnosis for this admission?: Yes Summary: Likely secondary to acute CVA; patient is currently normotensive and has not required antihypertensive medications. (5) Poorly controlled type 2 diabetes mellitus Is this a current diagnosis for this admission?: Yes Summary: Hemoglobin A1c found to be 9.1%. The patient was placed on long-acting insulin; dose increased per elevated fasting glucoses. He is discharged on Levemir 32 units nightly. While inpatient, the patient was provided sliding scale insulin. At discharge, he is recommended to continue Levemir and resume Farxiga. (6) Chronic pain Is this a current diagnosis for this admission?: Yes (7) Right hand pain Is this a current diagnosis for this admission?: Yes Summary: Improved. The patient complained of sudden onset of erythema, edema, and pain to right third MP joint; highly suspicious for gout yesterday. However, patient did have a fall the night prior to his admission. X-ray was negative for acute fracture. Uric acid is normal. He was provided colchicine 1.2 mg followed by 0.6 mg in 1 hour and an additional 0.6 mg this morning. Recommend limited NSAID use secondary to concurrent aspirin, Plavix, heparin therapy. - Additional Information Resuscitation Status: Do Not Resuscitate Discharge Diet: Cardiac, Diabetic Discharge Activity: Activity As Tolerated, Slowly Increase Activity, Supervised Activity - Physical therapy Prescriptions: Lorazepam [Ativan 0.5 mg Tablet] 0.25 mg PO Q8HP PRN #9 tablet PRN Reason: FOR ANXIETY Oxycodone HCl [Oxy-Ir 5 mg Tablet] 5 mg PO Q6HP PRN #12 tablet PRN Reason: For Pain Zolpidem Tartrate [Ambien] 10 mg PO HSP PRN #7 tablet PRN Reason: FOR SLEEP Home Medications: Buspirone HCl [Buspar 10 mg Tablet] 10 mg PO DAILY@1000,1400,1800 12/29/17 Dapagliflozin Propanediol [Farxiga] 5 mg PO DAILY 12/29/17 Escitalopram Oxalate [Lexapro] 20 mg PO DAILY 12/29/17 Fesoterodine Fumarate [Toviaz] 4 mg PO DAILY 12/29/17 Gabapentin [Neurontin 100 mg Capsule] 200 mg PO DAILY@1000,1400,1800 12/29/17 Mirabegron [Myrbetriq] 50 mg PO DAILY 12/29/17 Montelukast Sodium [Singulair 10 mg Tablet] 10 mg PO DAILY 12/29/17 Omeprazole 40 mg PO QPM 12/29/17 Tamsulosin HCl [Flomax 0.4 mg Cap.sr] 0.4 mg PO DAILY 12/29/17 Acetaminophen [Tylenol 325 mg Tablet] 650 mg PO Q4HP PRN tablet 01/03/18 Aspirin [Aspirin 81 mg Chewable Tablet] 81 mg PO DAILY tab.chew 01/03/18 Atorvastatin Calcium [Lipitor 20 mg Tablet] 40 mg PO QHS tablet 01/03/18 Clopidogrel Bisulfate [Plavix 75 mg Tablet] 75 mg PO DAILY tablet 01/03/18 Insulin Detemir [Levemir Insulin 100 units/mL] 32 unit SUBCUT QHS insuln.pen Lorazepam [Ativan 0.5 mg Tablet] 0.25 mg PO Q8HP PRN #9 tablet 01/03/18 Oxycodone HCl [Oxy-Ir 5 mg Tablet] 5 mg PO Q6HP PRN #12 tablet 01/03/18 Zolpidem Tartrate [Ambien] 10 mg PO HSP PRN #7 tablet 01/03/18 History of Present Illness Admission Date/PCP: 12/29/17 15:20 KVNG SINGLETON MD History of Present Illness: Per H&P by Dr. Foy: KVNG CHE is a 67 year old man with difficult to control diabetes, obesity, hypertension who started falling last night, his wanted to take him to the ER but he did not want to go, this morning he was having slurred speech and she called 911. The patient also had right arm weakness. In the ER he had signs and symptoms consistent with stroke, onset time unknown and he was not a TPA candidate. Scan of the head showed acute or subacute nonhemorrhagic stroke of the left posterior temporal cortex, along with a possible colloid cyst which has been seen in the past and also intraventricular drainage catheters unchanged from prior studies. Patient has been able to protect his airway. He has some expressive aphasia. He is being admitted to the hospitalist service, [facility], for continued management. Physical Exam Vital Signs: Temp Pulse Resp BP Pulse Ox 97.4 F 81 20 136/78 H 100 01/03/18 11:43 01/03/18 14:00 01/03/18 11:43 01/03/18 11:43 01/03/18 11:43 Intake & Output 01/02/18 01/03/18 01/04/18 06:59 06:59 06:59 Intake Total 1043 1360 1058 Output Total 460 1750 1100 Balance 583 -390 -42 Weight 94.9 kg 92.5 kg General appearance: PRESENT: no acute distress, cooperative, obese, well- developed, well-nourished Head exam: PRESENT: atraumatic, normocephalic Eye exam: PRESENT: conjunctiva pink, EOMI, PERRLA. ABSENT: scleral icterus Ear exam: PRESENT: normal external ear exam Mouth exam: PRESENT: moist, tongue midline Neck exam: ABSENT: carotid bruit, JVD, lymphadenopathy, thyromegaly Respiratory exam: PRESENT: clear to auscultation олег, symmetrical, unlabored. ABSENT: rales, rhonchi, wheezes Cardiovascular exam: PRESENT: RRR, +S1, +S2. ABSENT: diastolic murmur, rubs, systolic murmur Pulses: PRESENT: normal dorsalis pedis pul Vascular exam: PRESENT: normal capillary refill GI/Abdominal exam: PRESENT: normal bowel sounds, soft. ABSENT: distended, guarding, mass, organolmegaly, rebound, tenderness Rectal exam: PRESENT: deferred Extremities exam: PRESENT: full ROM. ABSENT: calf tenderness, clubbing, pedal edema Musculoskeletal exam: PRESENT: ambulatory - With front wheel walker and 2 person assist, tenderness - Erythema and edema to the Rt 3rd MP joint; improved from yesterday Neurological exam: PRESENT: alert, awake, oriented to person, CN II-XII grossly intact, aphasic - Continues to improve; speaking clearly with occasional word salad. Able to communicate with multiple attempts., other - 2/5 RUE, 3/5 RLE, 5 /5 on left. ABSENT: motor sensory deficit Psychiatric exam: PRESENT: appropriate affect, normal mood. ABSENT: homicidal ideation, suicidal ideation Skin exam: PRESENT: dry, intact, warm. ABSENT: cyanosis, rash Results Laboratory Results: 01/03/18 04:30 01/03/18 04:30 01/02/18 01/03/18 01/03/18 04:01 04:30 04:30 WBC 8.5 RBC 5.43 Hgb 16.9 Hct 47.9 MCV 88 MCH 31.1 MCHC 35.3 RDW 13.0 Plt Count 189 Sodium 136.4 L Potassium 3.9 Chloride 101 Carbon Dioxide 23 Anion Gap 12 BUN 14 Creatinine 0.64 Est GFR ( Amer) > 60 Est GFR (Non-Af Amer) > 60 Glucose 255 H Uric Acid 5.9 Calcium 9.0 12/29/17 12/29/17 12/30/17 19:55 19:55 01:55 Creatine Kinase 89 124 CK-MB (CK-2) 2.80 Troponin I 0.348 12/30/17 12/30/17 12/30/17 01:55 07:49 07:49 Creatine Kinase 138 CK-MB (CK-2) 2.73 3.10 Troponin I 0.563 0.613 Impressions: Head CTA 12/29/17 00:00 IMPRESSION: 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 Normal opacification of the [place] of [place]. 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 Up to 50% stenosis of the left internal carotid artery and left common carotid artery. No significant stenosis of the right carotid or vertebral arteries. Head CT 12/29/17 13:25 IMPRESSION: Acute or early subacute nonhemorrhagic infarct left posterior temporal cortex and subcortical white matter. 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 No hydrocephalus. Intraventricular drainage catheters are unchanged from prior studies. EVIDENCE OF ACUTE STROKE: Yes Chest X-Ray 12/31/17 06:00 IMPRESSION: NO ACUTE RADIOGRAPHIC FINDING IN THE CHEST. Hand X-Ray 01/02/18 00:00 IMPRESSION: Somewhat limited study as noted above. No definite evidence for acute fracture or dislocation. Other findings as noted above Transfer Plan - Disposition Transfer Plan: Dicharge to SNF for short term rehabilitation. - Time Spent with Patient Time spent with patient: Less than 30 Minutes Qualifiers - * PATIENT BEING DISCHARGED WITH ANY OF THE FOLLOWING DIAGNOSIS: Stroke Stroke Pt being discharged on Anti-thrombolytic therapy?: Yes Stroke Pt being discharged on Anti-coagulation therapy?: No Reason(s) for not prescribing Anti-coagulation therapy:: Not indicated Stroke Pt being discharged on Statins?: Yes Plan Discharge Plan: Discharge to [facility] for short-term rehab. Follow-up with the [facility] vascular surgery in 6-8 weeks. Time Spent: Less than 30 Minutes
== END 2018-01-03 16:42 | DRG 65 ==
LOC: ER 13:23 → EH 15:20 → 3N 17:48
PROVIDERS: ADMIT Internal Medicine; ATTEND Internal Medicine
DX: I63.212 Cerebral infarction due to unspecified occlusion or stenosis of left vertebral artery (principal); G81.91 Hemiplegia, unspecified affecting right dominant side; I25.10 Atherosclerotic heart disease of native coronary artery without angina pectoris; F41.8 Other specified anxiety disorders; I10 Essential (primary) hypertension; E11.51 Type 2 diabetes mellitus with diabetic peripheral angiopathy without gangrene; Z66 Do not resuscitate; M79.641 Pain in right hand; R47.01 Aphasia; R47.81 Slurred speech; E78.00 Pure hypercholesterolemia, unspecified; F32.9 Major depressive disorder, single episode, unspecified; F41.1 Generalized anxiety disorder; E66.01 Morbid (severe) obesity due to excess calories; G89.4 Chronic pain syndrome; E11.65 Type 2 diabetes mellitus with hyperglycemia; Z68.31 Body mass index [BMI] 31.0-31.9, adult; Z79.82 Long term (current) use of aspirin; Z79.4 Long term (current) use of insulin; Z79.899 Other long term (current) drug therapy; Z95.5 Presence of coronary angioplasty implant and graft; Z87.891 Personal history of nicotine dependence; Z80.0 Family history of malignant neoplasm of digestive organs; Z82.49 Family history of ischemic heart disease and other diseases of the circulatory system
CPT/HCPCS: 36415; 36600; 70450; 70496; 70498; 71045; 80048; 80053; 80061; 80307; 81001; 82550; 82553; 82803; 82962; 83036; 84484; 84550; 85025; 85027; 85610; 85730; 87040; 93005; 93010; 93306; 96374; 99291; G8978-GP; G8979-GP; G8987-GO; G8988-GO; G8996-GN; G8997-GN; J1644; J1815; J1885; J2765; J3490; J7030; S0164

== ENCOUNTER 2018-04-09 00:36 | Emergency (ER) | payer MEDICARE, OTHER ==
[2018-04-09] MEDS ORDERED: ACETAMINOPHEN 325 MG TABLET PO ONE (01:15)
--- NOTE | 2018-04-09 01:26 | ER Document Report ---
HPI - HPI Pain Level: 3 Notes: Patient is a 68-year-old male with a history of type 2 diabetes, hypertension, coronary artery disease, CVA 3 months ago who presents to the ED with complaining of a gradual onset of a headache that began around 1030 last night. Patient states that his headache has almost completely resolved at this time and he is feeling much better. states that he did not have any stroke- like symptoms that he had in the past. He had been eating and drinking without any difficulties. He is urinating normally and having normal bowel movements. states that he did take aspirin prior to arrival. Denies any drug allergies. Denies any injury. He has residual aphasia from the prev CVA that has remained unchanged as well as R>L side weakness, but improved since initial stroke. Denies any fever, head injury, neck pain/stiffness, falls, changes in vision/speech/mentation/hearing, URI, sore throat, chest pain, palpitations, syncope, cough, shortness of breath, wheeze, dyspnea, abdominal pain, nausea/ vomiting/diarrhea, urinary retention, dysuria, hematuria, loss of control of bowel or bladder, numbness/tingling, saddle anesthesia, muscle paralysis, or rash. - ROS Systems Reviewed and Negative: Yes All other systems reviewed and negative Past Medical History - Social History Smoking Status: Unknown if Ever Smoked Family History: Reviewed & Not Pertinent - Past Medical History Cardiac Medical History: Reports: Hx Coronary Artery Disease, Hx Hypercholesterolemia, Hx Hypertension, Hx Peripheral Vascular Disease Neurological Medical History: Reports: Hx Cerebrovascular Accident - Approximately 1 year ago. Denies: Hx Seizures Endocrine Medical History: Reports: Hx Diabetes Mellitus Type 1, Hx Diabetes Mellitus Type 2 Renal/ Medical History: Denies: Hx End Stage Renal Disease, Hx Peritoneal Dialysis GI Medical History: Denies: Hx Cirrhosis Musculoskeletal Medical History: Denies Hx Fibromyalgia, Denies Hx Gout Skin Medical History: Denies Hx Eczema, Denies Hx Psoriasis Psychiatric Medical History: Reports: Hx Depression Denies: Hx Dementia Past Surgical History: Reports: Hx Cardiac Catheterization, Hx Coronary Stent, Hx Neurologic Surgery - shunts of brain for hydrocephalus., Hx Orthopedic Surgery - bilateral rotator cuff repairs Vertical Provider Document - CONSTITUTIONAL Agree With Documented VS: Yes Notes: PHYSICAL EXAMINATION: GENERAL: Well-appearing, well-nourished and in no acute distress. A&Ox4. Answers questions appropriately. Expressive aphasia noted, but still understandable. HEAD: Atraumatic, normocephalic. Non-tender. EYES: Pupils equal round and reactive to light, extraocular movements intact, sclera anicteric, conjunctiva are normal. No nystagmus. vis white intact. ENT: Nares patent and without discharge. oropharynx clear without exudates. No tonsilar hypertrophy or erythema. Moist mucous membranes. No sinus tenderness. NECK: Normal range of motion, supple without lymphadenopathy. No rigidity/ meningismus. No midline tenderness. LUNGS: Breath sounds clear to auscultation bilaterally and equal. No wheezes rales or rhonchi. HEART: Regular rate and rhythm without murmurs, rubs, gallops. ABDOMEN: Soft, nontender, nondistended abdomen. No guarding, no rebound. Normal bowel sounds present. No CVA tenderness bilaterally. Musculoskeletal: Ext's b/l: FROM to passive/active. Strength 5+/5. No deficits noted. No bony tenderness of extremities. Extremities: No cyanosis, clubbing, or edema b/l. Peripheral pulses 2+. Capillary refill less than 2 seconds. NEUROLOGICAL: GCS 15. Cranial nerves grossly intact. expressive aphasia ( stable per pt/family). Normal sensory, motor exams. Reflexes 2+ b/l. DICKSON's negative. Pronator drift negative. Heel/fabian, finger/nose wnl. PSYCH: Normal mood, normal affect. SKIN: Warm, Dry, normal turgor, no rashes or lesions noted. - INFECTION CONTROL TRAVEL OUTSIDE OF THE [place] IN LAST 30 DAYS: No Course - Re-evaluation Re-evalutation: 04/09/18 02:54 Patient is an afebrile, well-hydrated, 68-year-old male who presents to the ED with a frontal headache, since resolved. Vitals are acceptable without any significant tachycardia, tachypnea, or hypoxia. PE is otherwise unremarkable for any focal neurological deficits aside from known expressive aphasia. CT scan of the head was unremarkable for any acute pathology. GCS 15, cranial nerves grossly intact brain no further labs or imaging warranted at this time based on H&P. Patient was given Tylenol in the ED and he did take aspirin prior to arrival. Patient states that he is feeling well and would like to go home. He is nontoxic-appearing and is tolerating p.o. without any difficulties. Low suspicion for any acute glaucoma, temporal arteritis, meningitis, intracranial hemorrhage, ischemic stroke, or fracture at this time. Patient is aware that his condition can change from initial presentation and that he needs to monitor symptoms closely for any acute changes. Recheck with your PCM in 1-2 days. Return to the ED with any worsening/concerning symptoms otherwise as reviewed discharge. Patient and are in agreement. - Vital Signs Vital signs: Temp Pulse Resp BP Pulse Ox 97.3 F 91 18 136/86 H 96 04/09/18 00:37 04/09/18 00:37 04/09/18 00:37 04/09/18 00:37 04/09/18 00:37 Discharge - Discharge Clinical Impression: Headache Qualifiers: Headache type: unspecified Headache chronicity pattern: acute headache Intractability: not intractable Qualified Code(s): R51 - Headache Condition: Stable Disposition: HOME, SELF-CARE Instructions: Headache ([facility]) Additional Instructions: Rest, Ice Tylenol/ibuprofen as needed Light stretches daily Strength exercises as able Moist heat and massage may help F/u with your PCP in 3-5 days for a recheck Consider consult with neurology Return to the ED with any worsening symptoms and/or development of fever, headache, changes in behavior/mentation/vision/speech, chest pain, palpitations , syncope, shortness of breath, trouble breathing, abdominal pain, n/v/d, blood in stool/urine, loss of control of bowel/bladder, urinary retention, muscle weakness/paralysis, saddle anesthesia, numbness/tingling, or other worsening symptoms that are concerning to you. Forms: Elevated Blood Pressure Referrals: KVNG SINGLETON MD [Primary Care Provider] - Follow up tomorrow
--- NOTE | 2018-04-09 02:46 | RADIOLOGY REPORT (SQ) ---
EXAM DESCRIPTION: CT HEAD WITHOUT IV CONTRAST COMPLETED DATE/TME: 04/09/2018 01:11 CLINICAL HISTORY: 68 years, Male, headache COMPARISON: 12/29/2017 TECHNIQUE: Axial CT images of the brain were obtained without contrast. Sagittal and coronal reformats were performed. ON LICENSE OF [facility] 1123 Images stored on PACS. All CT scanners at this facility use dose modulation, iterative reconstruction, and/or weight based dosing when appropriate to reduce radiation dose to as low as reasonably achievable (ALARA). [facility]: Dose Right [facility]: CareDose [facility]: Dose Right [facility]: Teradose 4D [facility]: [employer] LIMITATIONS: None. FINDINGS: Again noted is a hyperdense mass measuring 2.5 x 2.2 cm centered within the third ventricle. There is no hemorrhage, midline shift, herniation, hydrocephalus, or extra-axial fluid collection. The bilateral posterior approach ventricular shunt catheters are stable in position with grossly stable ventricular size. There is a chronic posterior left MCA distribution infarct. There is diffuse cerebral atrophy with microvascular changes along the left frontal lobe and mcdonald radiata. The paranasal sinuses and mastoid air cells are clear. There is no acute fracture. IMPRESSION: No acute intracranial abnormality. 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 Stable position of the two posterior approach ventricular shunt catheters with grossly stable ventricular size. TECHNICAL DOCUMENTATION: Quality ID # [id number]: Final reports with documentation of one or more dose reduction techniques (e.g., Automated exposure control, adjustment of the mA and/or kV according to patient size, use of iterative reconstruction technique) 2010 [employer] All Rights Reserved
[2018-04-09 04:06] VITALS: BP 136/89
--- NOTE | 2018-04-09 07:55 | EKG REPORT ---
SEVERITY:- ABNORMAL ECG - SINUS RHYTHM LVH WITH SECONDARY REPOLARIZATION ABNORMALITY : Confirmed by: Kerry Armstrong MD 09-Apr-2018 07:55:22
== END 2018-04-09 04:04 | disposition home or self-care (01) ==
LOC: ER 00:36
DX: R51 Headache (principal); E11.9 Type 2 diabetes mellitus without complications; I10 Essential (primary) hypertension; I69.951 Hemiplegia and hemiparesis following unspecified cerebrovascular disease affecting right dominant side; E78.00 Pure hypercholesterolemia, unspecified
CPT/HCPCS: 93005; 99284; 70450; 93010; A9270

== ENCOUNTER 2019-04-17 00:35 | Observation (INO) | payer MEDICARE, OTHER ==
--- NOTE | 2019-04-17 02:06 | RADIOLOGY REPORT (SQ) ---
EXAM DESCRIPTION: XR CHEST 2 VIEWS COMPLETED DATE/TME: 04/17/2019 01:22 CLINICAL HISTORY: 69 years, Male, shortness of breath COMPARISON: None. NUMBER OF VIEWS: 2 TECHNIQUE: 2 view chest LIMITATIONS: None. FINDINGS: Heart size normal. Post surgical change of the mediastinum. Mild elevation left hemidiaphragm. Lungs clear. No pneumothorax. Central venous catheter, with the tip in the cavoatrial junction IMPRESSION: No acute cardiopulmonary process copyright 2010 [employer]- All Rights Reserved
[2019-04-17 02:09] LABS: VENOUS BLOOD BASE EXCESS -4.4 mmol/L; VENOUS BLOOD HCO3 20.1 mmol/L (20-32); VENOUS BLOOD PCO2 36.1 mmHg (35-63); VENOUS BLOOD PH 7.36 (7.30-7.42)
[2019-04-17 02:10] LABS: HEMATOCRIT 52.7 % (37.9-51.0); HEMOGLOBIN 17.6 g/dL (13.5-17.0); MEAN CORPUSCULAR HEMOGLOBIN 29.7 pg (27.0-33.4); MEAN CORPUSCULAR HGB CONC 33.3 g/dL (32.0-36.0); MEAN CORPUSCULAR VOLUME 89 fl (80-97); PLATELET COUNT 216 10^3/uL (150-450); RED BLOOD COUNT 5.93 10^6/uL (4.35-5.55); RED CELL DISTRIBUTION WIDTH 13.9 % (11.5-14.0)
[2019-04-17 02:32] LABS: ALBUMIN 4.3 g/dL (3.5-5.0); ALKALINE PHOSPHATASE 75 U/L (38-126); ANION GAP 12 (5-19); ASPARTATE AMINO TRANSFERASE 32 U/L (17-59); BILIRUBIN,DIRECT 0.2 mg/dL (0.0-0.4); BILIRUBIN,TOTAL 0.6 mg/dL (0.2-1.3); BLOOD UREA NITROGEN 21 mg/dL (7-20); CALCIUM 9.9 mg/dL (8.4-10.2); CARBON DIOXIDE 25 mmol/L (22-30); CHLORIDE 101 mmol/L (98-107); GLUCOSE 184 mg/dL (75-110); POTASSIUM 4.3 mmol/L (3.6-5.0); TOTAL PROTEIN 7.1 g/dL (6.3-8.2)
[2019-04-17 02:53] LABS: PLATELET COMMENT ADEQUATE
[2019-04-17 02:55] LABS: BASOPHILS % (AUTO) 0.7 % (0-2); MONOCYTES % (AUTO) 8.2 % (3-13); SEGMENTED NEUTROPHILS % (AUTO) 69.1 % (42-78); TOTAL CELLS COUNTED % (AUTO) 100 %
[2019-04-17] MEDS ORDERED: ASPIRIN 81 MG TABLET, CHEWABLE PO ONE (03:09)
--- NOTE | 2019-04-17 04:13 | ER Document Report ---
ED General - General Chief Complaint: Shortness Of Breath Stated Complaint: SHORTNESS OF BREATH,HEAVINESS IN CHEST Time Seen by Provider: 04/17/19 01:16 Primary Care Provider: KVNG SNIGLETON MD [Primary Care Provider] - Follow up as needed TRAVEL OUTSIDE OF THE [place] IN LAST 30 DAYS: No - HPI Notes: This is a 69-year-old gentleman who presented with a complaint of chest discomfort or shortness of breath. Patient states that he attempted episodes of chest pain for the past 1 to 2 days. He was seen by his primary care provider yesterday they are planning to schedule a stress test for him given his cardiac history. Tonight, he said having some trouble breathing. He did have brief discomfort in his chest but did not denies any chest pain now. Patient is a poor historian. He has a history of heart disease status post bypass but states he does not know what his anginal equivalent is. He denies any fever or chills. He denies any cough or congestion. He is currently asymptomatic. - Related Data Allergies/Adverse Reactions: No Known Allergies Allergy (Verified 06/26/17 16:21) Past Medical History - Social History Smoking Status: Former Smoker Frequency of alcohol use: None Drug Abuse: None Family History: Reviewed & Not Pertinent Patient has suicidal ideation: No Patient has homicidal ideation: No - Past Medical History Cardiac Medical History: Reports: Hx Coronary Artery Disease, Hx Hypercholesterolemia, Hx Hypertension, Hx Peripheral Vascular Disease Neurological Medical History: Reports: Hx Cerebrovascular Accident - Approximately 1 year ago. Denies: Hx Seizures Endocrine Medical History: Reports: Hx Diabetes Mellitus Type 1, Hx Diabetes Mellitus Type 2 Renal/ Medical History: Denies: Hx End Stage Renal Disease, Hx Peritoneal Dialysis GI Medical History: Denies: Hx Cirrhosis Musculoskeletal Medical History: Denies Hx Fibromyalgia, Denies Hx Gout Skin Medical History: Denies Hx Eczema, Denies Hx Psoriasis Psychiatric Medical History: Reports: Hx Depression Denies: Hx Dementia Past Surgical History: Reports: Hx Cardiac Catheterization, Hx Coronary Stent, Hx Neurologic Surgery - shunts of brain for hydrocephalus., Hx Orthopedic Surgery - bilateral rotator cuff repairs Review of Systems - Review of Systems Constitutional: denies: Fever Cardiovascular: Chest pain. denies: Palpitations, Heart racing, Syncope Respiratory: Short of breath. denies: Cough -: Yes All other systems reviewed and negative Physical Exam - Vital signs Vitals: Temp Pulse Resp BP Pulse Ox 97.3 F 92 20 170/84 H 100 04/17/19 00:42 04/17/19 00:42 04/17/19 00:42 04/17/19 00:42 04/17/19 00:42 - General General appearance: Appears well, Alert - HEENT Head: Normocephalic, Atraumatic Eyes: Normal Pupils: PERRL - Respiratory Respiratory status: No respiratory distress Chest status: Nontender Breath sounds: Normal Chest palpation: Normal - Cardiovascular Rhythm: Regular Heart sounds: Normal auscultation Murmur: No - Abdominal Inspection: Normal Distension: No distension Bowel sounds: Normal Tenderness: Nontender Organomegaly: No organomegaly - Extremities General upper extremity: Normal inspection, Nontender, Normal color, Normal ROM, Normal temperature General lower extremity: Normal inspection, Nontender, Normal color, Normal ROM, Normal temperature. No: Eric's sign - Neurological Neuro grossly intact: Yes Cognition: Normal Orientation: AAOx4 Kody Coma Scale Eye Opening: Spontaneous Kody Coma Scale Verbal: Oriented Kody Coma Scale Motor: Obeys Commands Kody Coma Scale Total: 15 Speech: Normal Motor strength normal: LUE, RUE, LLE, RLE Sensory: Normal - Psychological Associated symptoms: Normal affect, Normal mood - Skin Skin Temperature: Warm Skin Moisture: Dry Skin Color: Normal Course - Re-evaluation Re-evalutation: 04/17/19 04:11 Differential diagnosis includes acute coronary syndrome versus atypical chest pain versus anxiety versus pneumonia. EKG shows normal sinus rhythm at 90 bpm. No specific T wave abnormalities. No acute injury pattern. 04/17/19 04:13 Patient reevaluated. Patient is doing well. Given his cardiac risk factors combined heart score of 6, he will need to be admitted for ACS rule out. 04/17/19 05:29 Patient's care discussed with Dr. Chery. Will admit for ACS rule out. - Vital Signs Vital signs: Temp Pulse Resp BP Pulse Ox 97.3 F 92 20 170/84 H 100 04/17/19 00:42 04/17/19 00:42 04/17/19 00:42 04/17/19 00:42 04/17/19 00:42 - Laboratory Result Diagrams: 04/17/19 01:58 04/17/19 01:58 Laboratory results interpreted by me: 04/17/19 04/17/19 01:58 01:58 RBC 5.93 H Hgb 17.6 H Hct 52.7 H BUN 21 H Glucose 184 H Discharge - Discharge Clinical Impression: Angina at rest Dyspnea Qualifiers: Dyspnea type: shortness of breath Qualified Code(s): R06.02 - Shortness of breath; R06.00 - Dyspnea, unspecified; R06.01 - Orthopnea Condition: Stable Disposition: ADMITTED INPATIENT Admitting Provider: Vik (Hospitalist) Unit Admitted: Telemetry Referrals: KVNG SINGLETON MD [Primary Care Provider] - Follow up as needed
[2019-04-17] MEDS ORDERED: ONDANSETRON HCL INJ/PF 4 MG/2 ML SDV IV PRN (05:41)
[2019-04-17] MEDS ORDERED: MAG HYDROX/AL HYDROX/SIMETH SUSP 30 ML UDCUP PO PRN (05:41)
[2019-04-17] MEDS ORDERED: MAGNESIUM HYDROXIDE SUSP 30 ML UDCUP PO PRN (05:41)
[2019-04-17] MEDS ORDERED: DEXTROSE 40% GEL 15 GM TUBE PO PRN ×2 (06:01)
[2019-04-17] MEDS ORDERED: GLUCAGON,HUMAN RECOMB 1 MG INJ IM PRN (06:01)
[2019-04-17] MEDS ORDERED: DEXTROSE 50%-WATER 25 GM/50 ML DISP.SYRIN IV PRN ×2 (06:01)
[2019-04-17] MEDS ORDERED: MORPHINE SULFATE 10 MG/ML INJ IV PRN ×4 (06:02→06:04)
[2019-04-17] MEDS: HEPARIN SOD (PORCINE) 5,000 UNIT/ML 1 ML VIAL SUBCUT SCH ×3 (06:06→21:44)
--- NOTE | 2019-04-17 07:10 | PDOC H&P ---
History of Present Illness Admission Date/PCP: KVNG SINGLETON MD Patient complains of: Chest pain History of Present Illness: KVNG CHE is a 69 year old male who presented to the emergency room with a 2-day history of chest pain. Patient admits that he has been suffering from intermittent chest pain episodes for the last 2 days. His pain is described as being a vague pressure-like discomfort in the center of his chest without radiation. Episodes of pain last for a couple of minutes and resolve spontaneously. The pain occurs both at times of exertion and times of rest with his last episode waking him from sleep prior to coming to the emergency room. Pain is accompanied by dyspnea which worsens with exertion, but he denies any other accompanying or associated signs or symptoms. He was seen by his primary care provider yesterday and a plan to have him undergo a cardiac stress test was initiated for next week. He admits prior similar episodes related to his coronary artery disease. He has not identified any aggravating or ameliorating factors for his chest pain. In the emergency room patient was asymptomatic and his initial evaluation showed no evidence of acute myocardial ischemia or injury on his EKG or initial cardiac enzymes. Because of the patient's history of coronary artery disease and prior angioplasty with stents he was admitted to observation for further evaluation treatment. Past Medical History Cardiac Medical History: Reports: Coronary Artery Disease, Hyperlipidema, Hypertension, Peripheral Vascular Disease Pulmonary Medical History: Denies: Asthma, Chronic Obstructive Pulmonary Disease (COPD) EENT Medical History: Denies: Cataracts, Ears - Hearing aids Neurological Medical History: Reports: Ischemic CVA Denies: Hemorrhagic CVA, Seizures Endocrine Medical History: Reports: Diabetes Mellitus Type 2 Denies: Diabetes Mellitus Type 1, Hyperthyroidism, Hypothyroidism Renal/ Medical History: Denies: Chronic Kidney Disease, End Stage Renal Disease, Nephrolithiasis Malignancy Medical History: Reports: None GI Medical History: Denies: Cirrhosis, Hepatitis Musculoskeltal Medical History: Denies: Arthritis, Gout Skin Medical History: Denies: Eczema, Psoriasis Psychiatric Medical History: Reports: Depression Denies: Alcohol Dependency, Dementia, Substance Abuse, Tobacco Dependency Traumatic Medical History: Reports: None Hematology: Denies: Anemia, Bleeding Tendencies Infectious Medical History: Reports: None Past Surgical History Past Surgical History: Reports: Cardiac Catheterization, Coronary Stent, Orthopedic Surgery - bilateral rotator cuff repairs Social History Information Source: Patient Lives with: Spouse/Significant other Smoking Status: Former Smoker Electronic Cigarette use?: No Frequency of Alcohol Use: None Hx Recreational Drug Use: No Drugs: None Hx Prescription Drug Abuse: No - Advance Directive Resuscitation Status: Full Code Surrogate healthcare decision maker:: Leigh Che Family History Family History: CAD, Malignancy Parental Family History Reviewed: Yes Children Family History Reviewed: No Sibling(s) Family History Reviewed.: Yes Medication/Allergy Home Medications: Buspirone HCl [Buspar 10 mg Tablet] 10 mg PO DAILY@1000,1400,1800 12/29/17 Dapagliflozin Propanediol [Farxiga] 5 mg PO DAILY 12/29/17 Escitalopram Oxalate [Lexapro] 20 mg PO DAILY 12/29/17 Fesoterodine Fumarate [Toviaz] 4 mg PO DAILY 12/29/17 Gabapentin [Neurontin 100 mg Capsule] 200 mg PO DAILY@1000,1400,1800 12/29/17 Mirabegron [Myrbetriq] 50 mg PO DAILY 12/29/17 Montelukast Sodium [Singulair 10 mg Tablet] 10 mg PO DAILY 12/29/17 Omeprazole 40 mg PO QPM 12/29/17 Tamsulosin HCl [Flomax 0.4 mg Cap.sr] 0.4 mg PO DAILY 12/29/17 Acetaminophen [Tylenol 325 mg Tablet] 650 mg PO Q4HP PRN tablet 01/03/18 Aspirin [Aspirin 81 mg Chewable Tablet] 81 mg PO DAILY tab.chew 01/03/18 Atorvastatin Calcium [Lipitor 20 mg Tablet] 40 mg PO QHS tablet 01/03/18 Clopidogrel Bisulfate [Plavix 75 mg Tablet] 75 mg PO DAILY tablet 01/03/18 Insulin Detemir [Levemir Insulin 100 units/mL Insulin Pen] 32 unit SUBCUT QHS insuln.pen 01/03/18 Lorazepam [Ativan 0.5 mg Tablet] 0.25 mg PO Q8HP PRN #9 tablet 01/03/18 Oxycodone HCl [Oxy-Ir 5 mg Tablet] 5 mg PO Q6HP PRN #12 tablet 01/03/18 Zolpidem Tartrate [Ambien] 10 mg PO HSP PRN #7 tablet 01/03/18 Allergies/Adverse Reactions: No Known Allergies Allergy (Verified 06/26/17 16:21) Review of Systems Constitutional: ABSENT: chills, fever(s) Eyes: ABSENT: visual disturbances, other - Eye pain Ears: ABSENT: hearing changes, other - Ear pain Nose, Mouth, and Throat: ABSENT: mouth pain, sore throat Cardiovascular: PRESENT: as per HPI, chest pain, dyspnea on exertion. ABSENT: edema, orthropnea, palpitations Respiratory: PRESENT: dyspnea. ABSENT: cough Gastrointestinal: ABSENT: abdominal pain, constipation, diarrhea, nausea, vomiting Genitourinary: ABSENT: dysuria, hematuria Musculoskeletal: ABSENT: back pain, joint swelling, muscle weakness Integumentary: ABSENT: pruritus, rash Neurological: ABSENT: confusion, convulsions, focal weakness, memory loss, syncope Psychiatric: ABSENT: anxiety, depression Endocrine: ABSENT: cold intolerance, heat intolerance Hematologic/Lymphatic: ABSENT: easy bleeding, easy bruising Allergic/Immunologic: ABSENT: seasonal rhinorrhea Physical Exam Vital Signs: Temp Pulse Resp BP Pulse Ox 97.3 F 92 20 170/84 H 100 04/17/19 00:42 04/17/19 00:42 04/17/19 00:42 04/17/19 00:42 04/17/19 00:42 Intake & Output 04/15/19 04/16/19 04/17/19 23:59 23:59 23:59 Weight 95.5 kg General appearance: PRESENT: no acute distress, cooperative Head exam: PRESENT: atraumatic, normocephalic Eye exam: PRESENT: conjunctiva pink. ABSENT: conjunctival injection, scleral icterus Ear exam: PRESENT: normal external ear exam. ABSENT: bleeding, drainage Mouth exam: PRESENT: dry mucosa, neck supple Neck exam: ABSENT: thyromegaly, tracheal deviation Respiratory exam: PRESENT: clear to auscultation олег, symmetrical, unlabored Cardiovascular exam: PRESENT: RRR. ABSENT: clicks, gallop, rubs Pulses: PRESENT: normal radial pulses, normal dorsalis pedis pul Vascular exam: PRESENT: normal capillary refill. ABSENT: pallor GI/Abdominal exam: PRESENT: normal bowel sounds, soft Rectal exam: PRESENT: deferred Extremities exam: ABSENT: joint swelling, pedal edema Musculoskeletal exam: ABSENT: deformity, dislocation Neurological exam: PRESENT: alert, oriented to person, oriented to place, oriented to time, oriented to situation, CN II-XII grossly intact. ABSENT: motor sensory deficit Psychiatric exam: PRESENT: appropriate affect, normal mood Skin exam: PRESENT: dry, intact, warm. ABSENT: jaundice, rash, urticaria Results Laboratory Results: 04/17/19 01:58 04/17/19 01:58 04/17/19 04/17/19 04/17/19 01:58 01:58 01:58 WBC 9.0 RBC 5.93 H Hgb 17.6 H Hct 52.7 H MCV 89 MCH 29.7 MCHC 33.3 RDW 13.9 Plt Count 216 Seg Neutrophils % 69.1 VBG pH 7.36 VBG pCO2 36.1 VBG HCO3 20.1 VBG Base Excess -4.4 Sodium 138.3 Potassium 4.3 Chloride 101 Carbon Dioxide 25 Anion Gap 12 BUN 21 H Creatinine 0.95 Est GFR ( Amer) > 60 Glucose 184 H Calcium 9.9 Total Bilirubin 0.6 AST 32 Alkaline Phosphatase 75 Total Protein 7.1 Albumin 4.3 04/17/19 01:58 Troponin I < 0.012 Impressions: Chest X-Ray 04/17/19 01:22 IMPRESSION: No acute cardiopulmonary process copyright 2011 [employer]- All Rights Reserved Assessment and Plan - Diagnosis (1) Angina at rest Is this a current diagnosis for this admission?: Yes (2) Coronary artery disease Qualifiers: Coronary Disease-Associated Artery/Lesion type: [place] artery [place] vs. transplanted heart: [place] heart Associated angina: with unstable angina Qualified Code(s): I25.110 - Atherosclerotic heart disease of [place] coronary artery with unstable angina pectoris Is this a current diagnosis for this admission?: Yes (3) Diabetes mellitus type 2 in obese Is this a current diagnosis for this admission?: Yes (4) Morbid obesity Is this a current diagnosis for this admission?: Yes - Plan Summary Summary: Patient is admitted observation status will have serial cardiac enzymes performed. A cardiac stress test will be obtained using a Cardiolite protocol. The patient will be observed on telemetry bed and will be reevaluated based upon the results of his cardiac stress test and cardiac enzyme testing. He will use morphine sulfate 2 to 4 mg IV every 2 hours on a as needed basis via sliding scale for pain. He will be continued on a cardiac diet with a diabetic carb for plan. He will be continued on his usual medications for heart disease hypertension and diabetes as well as his other usual medications. A hemoglobin A1c will be obtained. Patient will be placed on a sliding scale for hyperglycemia and a hypoglycemic protocol will be in place for use with before meals and at bedtime Accu-Cheks. - Time Time Spent with patient: 25-34 minutes Medications reviewed and adjusted accordingly: Yes Anticipated discharge: Home
[2019-04-17] MEDS: INSULIN REG, HUMAN 100 UNIT/ML 3 ML VIAL (PYX) SUBCUT SCH ×4 (08:34→21:44)
[2019-04-17 09:12] LABS: CREATINE KINASE MB 3.82 ng/mL (<4.55)
[2019-04-17 09:19] LABS: TROPONIN I < 0.012 ng/mL
[2019-04-17] MEDS: DOCUSATE SODIUM 100 MG CAPSULE PO SCH ×2 (09:35→18:09)
[2019-04-17] MEDS: FAMOTIDINE 20 MG TABLET PO SCH ×2 (09:35→21:44)
--- NOTE | 2019-04-17 13:39 | EKG REPORT ---
SEVERITY:- BORDERLINE ECG - SINUS RHYTHM PROBABLE LEFT ATRIAL ABNORMALITY BORDERLINE T ABNORMALITIES, INFERIOR LEADS : Confirmed by: Kerry Armstrong MD 17-Apr-2019 13:38:26
[2019-04-17] MEDS ORDERED: ISOSORBIDE MONONITRATE 60 MG TAB.ER.24H PO ONE (14:31)
[2019-04-17 15:14] LABS: CREATINE KINASE MB 3.68 ng/mL (<4.55)
[2019-04-17 15:19] LABS: TROPONIN I < 0.012 ng/mL
[2019-04-17] MEDS ORDERED: LORAZEPAM 1 MG TABLET PO ONE (15:30)
[2019-04-17] MEDS ORDERED: (PENDING PHARMACY ID) (Lisinopril [Zestril] 2.5 MG) PO SCH (18:00)
[2019-04-17] MEDS ORDERED: LISINOPRIL 5 MG TABLET PO SCH (18:00)
[2019-04-17] MEDS ORDERED: PANTOPRAZOLE SODIUM 40 MG TABLET.DR PO SCH (18:00)
[2019-04-17] MEDS: GABAPENTIN 100 MG CAPSULE PO SCH (18:10)
[2019-04-17 20:31] LABS: CREATINE KINASE MB 3.14 ng/mL (<4.55)
[2019-04-17 20:32] LABS: TROPONIN I < 0.012 ng/mL
[2019-04-17] MEDS ORDERED: LORAZEPAM 1 MG TABLET PO PRN (21:03)
--- NOTE | 2019-04-17 21:03 | PDOC PROGRESS REPORT ---
Subjective Progress Note for:: 04/17/19 Subjective:: The patient and his wish to speak to the doctor. He has been having a recurrent episode of the central chest discomfort. Reason For Visit: CHEST PAIN Physical Exam Vital Signs: Temp Pulse Resp BP Pulse Ox 97.8 F 99 20 133/75 H 97 04/17/19 19:33 04/17/19 19:33 04/17/19 19:33 04/17/19 19:33 04/17/19 19:33 Intake & Output 04/16/19 04/17/19 04/18/19 06:59 06:59 06:59 Intake Total 1116 Balance 1116 Weight 95.5 kg 90 kg General appearance: PRESENT: cooperative, mild distress, well-developed Head exam: PRESENT: atraumatic, normocephalic Mouth exam: PRESENT: dry mucosa, tongue midline Respiratory exam: PRESENT: clear to auscultation олег, symmetrical. ABSENT: rales, rhonchi, wheezes Cardiovascular exam: PRESENT: RRR, +S1, +S2 GI/Abdominal exam: PRESENT: normal bowel sounds, soft. ABSENT: distended, tenderness Extremities exam: ABSENT: pedal edema Neurological exam: PRESENT: alert, awake, oriented to person, oriented to place, oriented to time, oriented to situation, other - Decreased dexterity right hand and possible cognitive impairment from recent stroke Results Laboratory Results: 04/17/19 01:58 04/17/19 01:58 04/17/19 04/17/19 04/17/19 01:58 01:58 01:58 WBC 9.0 RBC 5.93 H Hgb 17.6 H Hct 52.7 H MCV 89 MCH 29.7 MCHC 33.3 RDW 13.9 Plt Count 216 Seg Neutrophils % 69.1 VBG pH 7.36 VBG pCO2 36.1 VBG HCO3 20.1 VBG Base Excess -4.4 Sodium 138.3 Potassium 4.3 Chloride 101 Carbon Dioxide 25 Anion Gap 12 BUN 21 H Creatinine 0.95 Est GFR ( Amer) > 60 Glucose 184 H Calcium 9.9 Total Bilirubin 0.6 AST 32 Alkaline Phosphatase 75 Total Protein 7.1 Albumin 4.3 04/17/19 04/17/19 04/17/19 01:58 08:27 08:27 Creatine Kinase 78 CK-MB (CK-2) 3.82 Troponin I < 0.012 < 0.012 04/17/19 04/17/19 04/17/19 14:33 14:33 19:55 Creatine Kinase 76 74 CK-MB (CK-2) 3.68 Troponin I < 0.012 04/17/19 19:55 Creatine Kinase CK-MB (CK-2) 3.14 Troponin I < 0.012 Impressions: Chest X-Ray 04/17/19 01:22 IMPRESSION: No acute cardiopulmonary process copyright 2010 [employer]- All Rights Reserved Assessment and Plan - Diagnosis (1) Angina at rest Is this a current diagnosis for this admission?: Yes (2) Diabetes mellitus type 2 in obese Is this a current diagnosis for this admission?: Yes (3) Coronary artery disease Qualifiers: Coronary Disease-Associated Artery/Lesion type: [place] artery [place] vs. transplanted heart: [place] heart Associated angina: with unstable angina Qualified Code(s): I25.110 - Atherosclerotic heart disease of [place] coronary artery with unstable angina pectoris Is this a current diagnosis for this admission?: Yes (4) Depression with anxiety Is this a current diagnosis for this admission?: Yes - Plan Summary Summary: Patient is admitted observation status will have serial cardiac enzymes perfor med. A cardiac stress test will be obtained using a Cardiolite protocol. The patient will be observed on telemetry bed and will be reevaluated based upon the results of his cardiac stress test and cardiac enzyme testing. He will use morphine sulfate 2 to 4 mg IV every 2 hours on a as needed basis via sliding scale for pain. He will be continued on a cardiac diet with a diabetic carb for plan. He will be continued on his usual medications for heart disease hypertension and diabetes as well as his other usual medications. A hemoglobin A1c will be obtained. Patient will be placed on a sliding scale for hyperglycemia and a hypoglycemic protocol will be in place for use with before meals and at bedtime Accu-Cheks. 04/17/2019- I reviewed Dr. Chery's admission history and physical. I reviewed the patient's troponins and these are negative so far. Despite his history of coronary disease I had a long discussion with the patient and his . He has been under a lot of stress. He also has a history of reflux. He has not been sleeping well. His also reports that he suffers from significant anxiety. The cardiac surgery and subsequent stroke have had a devastating effect on the patient. We reviewed all the reasons why his current condition would support a cardiac diagnosis versus a depression/anxiety diagnosis. We revealed all of the contributing factors and the patient's overall clinical status lately. His states that he is very inactive. He reports that he is very disillusioned with his current condition. His reports that is very short tempered. I reviewed how all of this was more likely anxiety and depression and this certainly was contributing to his chest discomfort. His reports that at home when he had been having similar symptoms she provided a dose of benzodiazepine and the symptoms went away and the patient was able to relax and go to sleep. Because of his cardiac history I will resume isosorbide (this is actually a new prescription for the patient just started 2 days ago) as well as his other cardiac medications. We are going to be in arranging for stress test as an outpatient. I told the patient that I strongly believe his cardiac enzymes will be negative. The patient's informed me that Dr. Jonathan Acevedo has already started to arrange outpatient stress test. The patient has a follow-up with Dr. Jonathan Acevedo as well as Dr. Daniels post discharge. He is also following with Dr. Tamez his psychiatrist and I strongly encouraged the patient and his to discuss anxiety and depression. Interestingly enough, the patient is listed as being on Lexapro. The patient and his or not aware that he had been prescribed an antidepressant. His pills are bubble packed so it is difficult to keep tractable the different pills. Towards the end of our discussion the patient in fact said that he was having substernal chest discomfort. Nitroglycerin is available. He did not take his him door this morning and so I ordered a dose for now. I also ordered a single dose of benzodiazepine therapy as I have a strong feeling that this will relieve his discomfort. - Time Total Critical Time (Minutes): 35 Medications reviewed and adjusted accordingly: Yes Anticipated discharge: Home Within: within 24 hours
[2019-04-17] MEDS: METOPROLOL TARTRATE 50 MG TABLET PO SCH (21:44)
[2019-04-17] MEDS ORDERED: ATORVASTATIN CALCIUM 20 MG TABLET PO SCH (22:00)
[2019-04-18] MEDS: HEPARIN SOD (PORCINE) 5,000 UNIT/ML 1 ML VIAL SUBCUT SCH (05:37)
[2019-04-18] MEDS ORDERED: PANTOPRAZOLE SODIUM 40 MG TABLET.DR PO SCH (06:00)
--- NOTE | 2019-04-18 08:27 | PDOC DISCHARGE SUMMARY ---
Impression - Admit/DC Date/PCP Admission Date/Primary Care Provider: 04/17/19 05:40 KVNG SINGLETON MD Discharge Date: 04/18/19 - Discharge Diagnosis (1) Angina at rest Is this a current diagnosis for this admission?: Yes (2) Diabetes mellitus type 2 in obese Is this a current diagnosis for this admission?: Yes (3) Coronary artery disease Is this a current diagnosis for this admission?: Yes (4) Depression with anxiety Is this a current diagnosis for this admission?: Yes - Assessment Summary: Patient is admitted observation status will have serial cardiac enzymes performed. A cardiac stress test will be obtained using a Cardiolite protocol. The patient will be observed on telemetry bed and will be reevaluated based upon the results of his cardiac stress test and cardiac enzyme testing. He will use morphine sulfate 2 to 4 mg IV every 2 hours on a as needed basis via sliding scale for pain. He will be continued on a cardiac diet with a diabetic carb for plan. He will be continued on his usual medications for heart disease hypertension and diabetes as well as his other usual medications. A hemoglobin A1c will be obtained. Patient will be placed on a sliding scale for hyperglycemia and a hypoglycemic protocol will be in place for use with before meals and at bedtime Accu-Cheks. 04/17/2019- I reviewed Dr. Chery's admission history and physical. I reviewed the patient's troponins and these are negative so far. Despite his history of coronary disease I had a long discussion with the patient and his . He has been under a lot of stress. He also has a history of reflux. He has not been sleeping well. His also reports that he suffers from significant anxiety. The cardiac surgery and subsequent stroke have had a devastating effect on the patient. We reviewed all the reasons why his current condition would support a cardiac diagnosis versus a depression/anxiety diagnosis. We revealed all of the contributing factors and the patient's overall clinical status lately. His states that he is very inactive. He reports that he is very disillusioned with his current condition. His reports that is very short tempered. I reviewed how all of this was more likely anxiety and depression and this certainly was contributing to his chest discomfort. His reports that at home when he had been having similar symptoms she provided a dose of benzodiazepine and the symptoms went away and the patient was able to relax and go to sleep. Because of his cardiac history I will resume isosorbide (this is actually a new prescription for the patient just started 2 days ago) as well as his other cardiac medications. We are going to be in arranging for stress test as an outpatient. I told the patient that I strongly believe his cardiac enzymes will be negative. The patient's informed me that Dr. Jonathan Acevedo has already started to arrange outpatient stress test. The patient has a follow-up with Dr. Jonathan Acevedo as well as Dr. Daniels post discharge. He is also following with Dr. Tamez his psychiatrist and I strongly encouraged the patient and his to discuss anxiety and depression. Interestingly enough, the patient is listed as being on Lexapro. The patient and his or not aware that he had been prescribed an antidepressant. His pills are bubble packed so it is difficult to keep tractable the different pills. Towards the end of our discussion the patient in fact said that he was having substernal chest discomfort. Nitroglycerin is available. He did not take his him door this morning and so I ordered a dose for now. I also ordered a single dose of benzodiazepine therapy as I have a strong feeling that this will relieve his discomfort. - Additional Information Resuscitation Status: Full Code Discharge Diet: Cardiac, Diabetic Discharge Activity: Activity As Tolerated Referrals: AMINTA DANIELS MD [[facility]] - 04/29/19 2:00 pm KVNG SINGLETON MD [Primary Care Provider] - 05/08/19 11:00 am (NO OTHER APPOINTMENTS AVAILABLE) Home Medications: Dapagliflozin Propanediol [Farxiga] 5 mg PO DAILY 12/29/17 Escitalopram Oxalate [Lexapro] 20 mg PO DAILY 12/29/17 Gabapentin [Neurontin 100 mg Capsule] 200 mg PO DAILY@1000,1400,1800 12/29/17 Omeprazole 40 mg PO QPM 12/29/17 Tamsulosin HCl [Flomax 0.4 mg Cap.sr] 0.4 mg PO DAILY 12/29/17 Atorvastatin Calcium [Lipitor 20 mg Tablet] 40 mg PO QHS tablet 01/03/18 Clopidogrel Bisulfate [Plavix 75 mg Tablet] 75 mg PO DAILY tablet 01/03/18 Aspirin [Ecotrin 81 mg EC Tablet] 81 mg PO DAILY 04/17/19 Fesoterodine Fumarate [Toviaz] 8 mg PO DAILY 04/17/19 Insulin Aspart [Novolog Flexpen] 10 unit SQ TID 04/17/19 Insulin Degludec [Tresiba Flextouch U-100] 50 unit SQ DAILY 04/17/19 Isosorbide Mononitrate [Imdur 30 mg Tablet.er] 30 mg PO DAILY 04/17/19 Lisinopril [Zestril] 2.5 mg PO QPM 04/17/19 Metoprolol Tartrate [Lopressor 50 mg Tablet] 50 mg PO Q12 04/17/19 Docusate Sodium [Colace 100 mg Capsule] 100 mg PO BID capsule 04/18/19 History of Present Illiness History of Present Illness: KVNG CHE is a 69 year old male with a history of stroke after coronary artery bypass graft surgery. He also has a history of diabetes. He presented with chest discomfort. He has been having discomfort in the past. His reports that sometimes it does not respond to nitroglycerin and so she has not been giving it. He does respond to benzodiazepine therapy and so she thinks it might be anxiety. Because of his cardiac history the patient was referred to the hospital service for admission. First troponin was negative. Hospital Course Hospital Course: Unremarkable hospital course. For troponin studies were less than 0.012. The patient was having some chest discomfort but this did respond to benzodiazepine therapy. In a long discussion with patient and his . It is likely that he is depressed from the stroke after his open heart surgery. His reports that he is emotionally labile at home. He is on Lexapro 20 mg. They were not sure what medications they are on because the medications are blister packed at home. They do not have the blister pack and so we are unable to check labels. I have ordered his medications based on pharmacy's medication reconciliation. I explained to the patient that I do not believe this is cardiac. I still want him to have a stress test because his primary care physician and manpower development specialist were working on scheduling an outpatient stress test. He will call his manpower development specialist and primary care provider Saturday to see where we are with the outpatient stress test. I did asked that he increase his M door to the full 30 mg tablet as he was only taking 15 mg previously. The patient had good understanding and agreed with discharge. Physical Exam Vital Signs: Temp Pulse Resp BP Pulse Ox 97.6 F 69 16 130/74 H 90 L 04/18/19 07:31 04/18/19 07:31 04/18/19 07:31 04/18/19 07:31 04/18/19 07:31 Intake & Output 04/17/19 04/18/19 04/19/19 06:59 06:59 06:59 Intake Total 1967 Balance 1968 Weight 95.5 kg 90.5 kg General appearance: PRESENT: no acute distress, well-developed Head exam: PRESENT: atraumatic, normocephalic Respiratory exam: PRESENT: clear to auscultation олег, symmetrical, unlabored. ABSENT: rales, rhonchi, tachypnea, wheezes Cardiovascular exam: PRESENT: RRR, +S1, +S2, systolic murmur GI/Abdominal exam: PRESENT: normal bowel sounds, soft. ABSENT: distended, tenderness Neurological exam: PRESENT: alert, awake, oriented to person, oriented to place, oriented to situation, other - Noticeable cognitive deficit likely secondary to history of stroke earlier this year Psychiatric exam: ABSENT: agitated, anxious Results Laboratory Results: WBC 9.0 10^3/uL (4.0-10.5) 04/17/19 01:58 RBC 5.93 10^6/uL (4.35-5.55) H 04/17/19 01:58 Hgb 17.6 g/dL (13.5-17.0) H 04/17/19 01:58 Hct 52.7 % (37.9-51.0) H 04/17/19 01:58 MCV 89 fl (80-97) 04/17/19 01:58 MCH 29.7 pg (27.0-33.4) 04/17/19 01:58 MCHC 33.3 g/dL (32.0-36.0) 04/17/19 01:58 RDW 13.9 % (11.5-14.0) 04/17/19 01:58 Plt Count 216 10^3/uL (150-450) 04/17/19 01:58 Lymph % (Auto) 19.0 % (13-45) 04/17/19 01:58 Dimmit % (Auto) 8.2 % (3-13) 04/17/19 01:58 Eos % (Auto) 3.0 % (0-6) 04/17/19 01:58 Baso % (Auto) 0.7 % (0-2) 04/17/19 01:58 Absolute Neuts (auto) Not Reportable 04/17/19 01:58 Absolute Lymphs (auto) Not Reportable 04/17/19 01:58 Absolute Monos (auto) Not Reportable 04/17/19 01:58 Absolute Eos (auto) Not Reportable 04/17/19 01:58 Absolute Basos (auto) Not Reportable 04/17/19 01:58 Total Counted Not Reportable 04/17/19 01:58 Seg Neutrophils % 69.1 % (42-78) 04/17/19 01:58 Seg Neuts % (Manual) Not Reportable 04/17/19 01:58 Lymphocytes % (Manual) Not Reportable 04/17/19 01:58 Monocytes % (Manual) Not Reportable 04/17/19 01:58 Eosinophils % (Manual) Not Reportable 04/17/19 01:58 Basophils % (Manual) Not Reportable 04/17/19 01:58 Abs Neuts (Manual) Not Reportable 04/17/19 01:58 Abs Lymphs (Manual) Not Reportable 04/17/19 01:58 Abs Monocytes (Manual) Not Reportable 04/17/19 01:58 Absolute Eos (Manual) Not Reportable 04/17/19 01:58 Abs Basophils (Manual) Not Reportable 04/17/19 01:58 Platelet Comment ADEQUATE 04/17/19 01:58 VBG pH 7.36 (7.30-7.42) 04/17/19 01:58 VBG pCO2 36.1 mmHg (35-63) 04/17/19 01:58 VBG HCO3 20.1 mmol/L (20-32) 04/17/19 01:58 VBG Base Excess -4.4 mmol/L 04/17/19 01:58 Sodium 138.3 mmol/L (137-145) 04/17/19 01:58 Potassium 4.3 mmol/L (3.6-5.0) 04/17/19 01:58 Chloride 101 mmol/L (98-107) 04/17/19 01:58 Carbon Dioxide 25 mmol/L (22-30) 04/17/19 01:58 Anion Gap 12 (5-19) 04/17/19 01:58 BUN 21 mg/dL (7-20) H 04/17/19 01:58 Creatinine 0.95 mg/dL (0.52-1.25) 04/17/19 01:58 Est GFR ( Amer) > 60 (>60) 04/17/19 01:58 Est GFR (MDRD) Non-Af > 60 (>60) 04/17/19 01:58 Glucose 184 mg/dL (75-110) H 04/17/19 01:58 POC Glucose 138 mg/dL (70-110) H 04/18/19 06:23 Calcium 9.9 mg/dL (8.4-10.2) 04/17/19 01:58 Total Bilirubin 0.6 mg/dL (0.2-1.3) 04/17/19 01:58 Direct Bilirubin 0.2 mg/dL (0.0-0.4) 04/17/19 01:58 Neonat Total Bilirubin Not Reportable 04/17/19 01:58 Neonat Direct Bilirubin Not Reportable 04/17/19 01:58 Neonat Indirect Bili Not Reportable 04/17/19 01:58 AST 32 U/L (17-59) 04/17/19 01:58 ALT 43 U/L (<50) 04/17/19 01:58 Alkaline Phosphatase 75 U/L (38-126) 04/17/19 01:58 Creatine Kinase 74 U/L (55-170) 04/17/19 19:55 CK-MB (CK-2) 3.14 ng/mL (<4.55) 04/17/19 19:55 Troponin I < 0.012 ng/mL 04/17/19 19:55 Total Protein 7.1 g/dL (6.3-8.2) 04/17/19 01:58 Albumin 4.3 g/dL (3.5-5.0) 04/17/19 01:58 04/17/19 04/17/19 04/17/19 01:58 08:27 14:33 CK-MB (CK-2) 3.82 3.68 Troponin I < 0.012 < 0.012 < 0.012 04/17/19 19:55 CK-MB (CK-2) 3.14 Troponin I < 0.012 Impressions: Chest X-Ray 04/17/19 01:22 IMPRESSION: No acute cardiopulmonary process copyright 2010 [employer]- All Rights Reserved Plan Health Concerns: This episode is likely more depression/anxiety related. The patient will follow up with cardiology and primary care but also has appointment with his psychiatrist. I stressed to the patient and his to present in some detail the patient's emotional state. Outpatient stress test is being scheduled. Plan of Treatment: Outpatient stress test. Increase isosorbide slightly. Follow-up with primary care, cardiology and psychiatry Goals: Proceed with stress test to reevaluate cardiac status. Improve treatment of depression/anxiety Time Spent: Greater than 30 Minutes Stroke Is this a Stroke Patient?: No Acute Heart Failure - Is this a Heart Failure Patient?: No
[2019-04-18] MEDS: INSULIN REG, HUMAN 100 UNIT/ML 3 ML VIAL (PYX) SUBCUT SCH (08:56)
[2019-04-18] MEDS: FAMOTIDINE 20 MG TABLET PO SCH (09:53)
[2019-04-18] MEDS: METOPROLOL TARTRATE 50 MG TABLET PO SCH (09:54)
[2019-04-18] MEDS: DOCUSATE SODIUM 100 MG CAPSULE PO SCH (09:54)
[2019-04-18] MEDS: GABAPENTIN 100 MG CAPSULE PO SCH (09:54)
[2019-04-18] MEDS ORDERED: ASPIRIN 81 MG TABLET, ENT COATED PO SCH (10:00)
[2019-04-18] MEDS ORDERED: ESCITALOPRAM OXALATE 10 MG TABLET PO SCH (10:00)
[2019-04-18] MEDS ORDERED: ISOSORBIDE MONONITRATE 30 MG TAB.ER.24H PO SCH (10:00)
[2019-04-18] MEDS ORDERED: CLOPIDOGREL BISULFATE 75 MG TABLET PO SCH (10:00)
[2019-04-18] MEDS ORDERED: TAMSULOSIN HCL 0.4 MG CAP.SR.24H PO SCH (10:00)
[2019-04-18 10:09] VITALS: BP 103/74
== END 2019-04-18 10:20 | disposition home or self-care (01) ==
LOC: ER 00:35 → EH 05:40 → INTOOBSV 05:40 → 4W 06:55
PROVIDERS: ADMIT Emergency Medicine; ATTEND Emergency Medicine
DX: I25.110 Atherosclerotic heart disease of native coronary artery with unstable angina pectoris (principal); E11.51 Type 2 diabetes mellitus with diabetic peripheral angiopathy without gangrene; F41.8 Other specified anxiety disorders; E66.01 Morbid (severe) obesity due to excess calories; I10 Essential (primary) hypertension; K21.9 Gastro-esophageal reflux disease without esophagitis; E78.5 Hyperlipidemia, unspecified; R41.89 Other symptoms and signs involving cognitive functions and awareness; Z79.899 Other long term (current) drug therapy; Z95.1 Presence of aortocoronary bypass graft; Z86.73 Personal history of transient ischemic attack (TIA), and cerebral infarction without residual deficits; Z87.891 Personal history of nicotine dependence; Z82.49 Family history of ischemic heart disease and other diseases of the circulatory system; Z79.82 Long term (current) use of aspirin; Z73.3 Stress, not elsewhere classified; Z79.4 Long term (current) use of insulin; Z98.2 Presence of cerebrospinal fluid drainage device
CPT/HCPCS: 93005; 99285; 36415; 82553; 82962 ×2; 82550; 85025; 80053; 84484; 82803; 71046; 93010; G0378 ×3; A9270 ×17; J1644 ×2; J3490 ×4; J1815

== ENCOUNTER 2019-10-02 19:39 | Emergency (ER) | payer MEDICARE, OTHER ==
[2019-10-02 20:14] LABS: ABSOLUTE BASOPHILS # (AUTO) 0.1 10^3/uL (0.0-0.2); ABSOLUTE EOSINOPHILS # (AUTO) 0.3 10^3/uL (0.0-0.6); ABSOLUTE LYMPHOCYTES (AUTO) 1.2 10^3/uL (0.5-4.7); ABSOLUTE MONOCYTES (AUTO) 0.7 10^3/uL (0.1-1.4); ABSOLUTE NEUT (AUTO) 7.9 10^3/uL (1.7-8.2); BASOPHILS % (AUTO) 0.5 % (0-2); EOSINOPHILS % (AUTO) 2.8 % (0-6); HEMATOCRIT 44.2 % (37.9-51.0); HEMOGLOBIN 15.5 g/dL (13.5-17.0); LYMPHOCYTES % (AUTO) 11.7 % (13-45); MEAN CORPUSCULAR HEMOGLOBIN 31.5 pg (27.0-33.4); MEAN CORPUSCULAR HGB CONC 35.1 g/dL (32.0-36.0); MEAN CORPUSCULAR VOLUME 90 fl (80-97); MONOCYTES % (AUTO) 6.8 % (3-13); PLATELET COUNT 255 10^3/uL (150-450); RED BLOOD COUNT 4.92 10^6/uL (4.35-5.55); RED CELL DISTRIBUTION WIDTH 13.4 % (11.5-14.0); SEGMENTED NEUTROPHILS % (AUTO) 78.2 % (42-78); TOTAL CELLS COUNTED % (AUTO) 100 %; WHITE BLOOD COUNT 10.1 10^3/uL (4.0-10.5)
[2019-10-02 20:21] LABS: ALBUMIN 3.9 g/dL (3.5-5.0); ALKALINE PHOSPHATASE 73 U/L (38-126); ANION GAP 13 (5-19); ASPARTATE AMINO TRANSFERASE 32 U/L (17-59); BILIRUBIN,DIRECT 0.3 mg/dL (0.0-0.4); BILIRUBIN,TOTAL 0.6 mg/dL (0.2-1.3); BLOOD UREA NITROGEN 12 mg/dL (7-20); CALCIUM 9.3 mg/dL (8.4-10.2); CARBON DIOXIDE 25 mmol/L (22-30); CHLORIDE 98 mmol/L (98-107); GLUCOSE 137 mg/dL (75-110); POTASSIUM 4.2 mmol/L (3.6-5.0); TOTAL PROTEIN 7.2 g/dL (6.3-8.2)
[2019-10-02 20:28] LABS: APPEARANCE,URINE CLOUDY; BILIRUBIN,URINE NEGATIVE (NEGATIVE); COLOR,URINE RED; GLUCOSE, URINE NEGATIVE (NEGATIVE); KETONES,URINE NEGATIVE (NEGATIVE); LEUKOCYTE ESTERASE,URINE MODERATE (NEGATIVE); NITRITE,URINE POSITIVE (NEGATIVE); PROTEIN,URINE 100 mg/dL (NEGATIVE); URINE SPECIFIC GRAVITY 1.019; UROBILINOGEN,URINE NEGATIVE mg/dL (<2.0)
--- NOTE | 2019-10-02 22:04 | ER Document Report ---
ED General - General Chief Complaint: Blood in Catheter Stated Complaint: BLOOD IN URINE Time Seen by Provider: 10/02/19 21:34 Primary Care Provider: KVNG SINGLETON MD [Primary Care Provider] - Follow up as needed Notes: 69-year-old male history of CVA x2 in the past presents with complaint of irritation from the indwelling Kimball catheter. Family member notes that the catheter is been in for greater than a month and has not been changed since he was discharged from the long-term care facility in [place]. Patient is nonverbal but appears to understand questions and nods his head for yes and no answers. He admits to discomfort and burning, denies abdominal pain or back pain. TRAVEL OUTSIDE OF THE [place] IN LAST 30 DAYS: No - Related Data Allergies/Adverse Reactions: No Known Allergies Allergy (Verified 06/26/17 16:21) Home Medications: Meds in room. Past Medical History - Social History Smoking Status: Unknown if Ever Smoked Family History: CAD, Malignancy Patient has suicidal ideation: No Patient has homicidal ideation: No - Past Medical History Cardiac Medical History: Reports: Hx Coronary Artery Disease, Hx Hyper cholesterolemia, Hx Hypertension, Hx Peripheral Vascular Disease Pulmonary Medical History: Denies: Hx Asthma, Hx COPD Neurological Medical History: Reports: Hx Cerebrovascular Accident - Approximately 1 year ago. Denies: Hx Seizures Endocrine Medical History: Reports: Hx Diabetes Mellitus Type 2. Denies: Hx Diabetes Mellitus Type 1, Hx Hyperthyroidism, Hx Hypothyroidism Renal/ Medical History: Denies: Hx End Stage Renal Disease, Hx Peritoneal Dialysis GI Medical History: Denies: Hx Cirrhosis, Hx Hepatitis Musculoskeletal Medical History: Denies Hx Arthritis, Denies Hx Fibromyalgia, Denies Hx Gout Skin Medical History: Denies Hx Eczema, Denies Hx Psoriasis Psychiatric Medical History: Reports: Hx Depression Denies: Hx Dementia Infectious Medical History: Denies: Hx Hepatitis Past Surgical History: Reports: Hx Cardiac Catheterization, Hx Coronary Stent, Hx Neurologic Surgery - shunts of brain for hydrocephalus., Hx Orthopedic Surg radha - bilateral rotator cuff repairs Review of Systems - Review of Systems Notes: Constitutional: Negative for fever. HENT: Negative for sore throat. Eyes: Negative for visual changes. Cardiovascular: Negative for chest pain. Respiratory: Negative for shortness of breath. Gastrointestinal: Negative for abdominal pain, vomiting or diarrhea. Genitourinary: Negative for dysuria. Musculoskeletal: Negative for back pain. Skin: Negative for rash. Neurological: Negative for headaches, weakness or numbness. 10 point ROS negative except as marked above and in HPI. Physical Exam - Vital signs Vitals: Temp Pulse Resp BP Pulse Ox 97.4 F 76 20 131/72 H 96 10/02/19 19:45 10/02/19 19:45 10/02/19 19:45 10/02/19 19:45 10/02/19 19:45 - Notes Notes: PHYSICAL EXAMINATION: Physical Exam: General: Chronically ill 69-year-old man in no acute distress HEENT: NC/AT, pupils equal round and reactive to light, MM moist,nares clear, oropharynx clear, airway patent Neck: supple, no adenopathy, no masses. Good range of motion Lungs: clear, no wheezing, no rales no rhonchi CVS: Regular rate and rhythm no murmur gallop or rub Abdomen: Soft, active, nontender, no masses, no hepatosplenomegaly : Indwelling Kimball catheter Ext: No edema, clubbing or cyanosis. Neuro: Alert and responsive, moving all 4 extremities on command, cranial nerves intact, no focal findings Skin: Intact no open lesions, no rash PSYCH: Normal mood, normal affect. Course - Vital Signs Vital signs: Temp Pulse Resp BP Pulse Ox 97.4 F 76 20 131/72 H 96 10/02/19 19:45 10/02/19 19:45 10/02/19 19:45 10/02/19 19:45 10/02/19 19:45 - Laboratory Result Diagrams: 10/02/19 19:43 10/02/19 19:43 Laboratory results interpreted by me: 10/02/19 10/02/19 10/02/19 19:43 19:43 19:43 Lymph % (Auto) 11.7 L Seg Neutrophils % 78.2 H Sodium 135.6 L Glucose 137 H Urine Protein 100 H Urine Blood MODERATE H Urine Nitrite POSITIVE H Ur Leukocyte Esterase MODERATE H Urine Ascorbic Acid 20 H Discharge - Discharge Clinical Impression: Chronic indwelling Kimball catheter UTI (urinary tract infection) Qualifiers: Urinary tract infection type: site unspecified Hematuria presence: with h ematuria Qualified Code(s): N39.0 - Urinary tract infection, site not specified; R31.9 - Hematuria, unspecified Condition: Good Disposition: HOME, SELF-CARE Instructions: Urinary Tract Infection ([facility]), Kimball Catheter Care ([facility]) Additional Instructions: You were diagnosed with a catheter related urinary tract infection. Please take the antibiotics as prescribed, cephalexin. Follow-up with your doctor as directed for a repeat urinalysis in 10 days. If you develop fever or other concerns you may return to the emergency department for further evaluation and treatment. Prescriptions: Cephalexin Monohydrate [Keflex 500 mg Capsule] 500 mg PO Q8 10 Days capsule Referrals: KVNG SINGLETON MD [Primary Care Provider] - Follow up as needed
[2019-10-02 23:44] LABS: APPEARANCE,URINE CLOUDY; BILIRUBIN,URINE NEGATIVE (NEGATIVE); COLOR,URINE RED; GLUCOSE, URINE NEGATIVE (NEGATIVE); KETONES,URINE NEGATIVE (NEGATIVE); PROTEIN,URINE 100 mg/dL (NEGATIVE); URINE SPECIFIC GRAVITY 1.017; UROBILINOGEN,URINE NEGATIVE mg/dL (<2.0)
[2019-10-02] MEDS ORDERED: CEPHALEXIN 500 MG CAPSULE PO ONE (23:55)
[2019-10-03 01:29] VITALS: BP 166/85
== END 2019-10-03 01:29 | disposition home or self-care (01) ==
LOC: ER 19:39
DX: T83.511A Infection and inflammatory reaction due to indwelling urethral catheter, initial encounter (principal); N39.0 Urinary tract infection, site not specified; B96.89 Other specified bacterial agents as the cause of diseases classified elsewhere; R31.9 Hematuria, unspecified; Y84.6 Urinary catheterization as the cause of abnormal reaction of the patient, or of later complication, without mention of misadventure at the time of the procedure; I25.10 Atherosclerotic heart disease of native coronary artery without angina pectoris; E78.00 Pure hypercholesterolemia, unspecified; Z86.73 Personal history of transient ischemic attack (TIA), and cerebral infarction without residual deficits; I10 Essential (primary) hypertension; E11.9 Type 2 diabetes mellitus without complications
CPT/HCPCS: 99284; 36415; 87086; 85025; 87088; 80053; 81001; A9270; 87186